=== PATIENT | female | born 1930 | race Caucasian/White ===

== ENCOUNTER 2016-07-24 19:47 | Emergency (ER) | payer OTHER, MEDICAID ==
[2016-07-24] MEDS ORDERED: ACETAMINOPHEN 325 MG TAB ONE (20:36)
[2016-07-24] MEDS ORDERED: NS 1,800 ML IV ONE (20:37)
--- NOTE | 2016-07-24 20:40 | EDPHY ---
H & P Stated Complaint: ST, Bilateral Earache, Coughing, chills. Time Seen by Provider: 07/24/16 20:29 HPI/ROS: CHIEF COMPLAINT: Sore throat and ear pain HISTORY OF PRESENT ILLNESS: The patient is an 86-year-old female who is brought by her daughter to the emergency department for sore throat, fever and bilateral ear pain as well as sinus congestion. Patient states that she has had bad allergies all winter but that over the last 3 days her symptoms have worsened. She does not have any history of cardiac pulmonary disease. She denies chest pain or shortness of breath. She denies abdominal pain, nausea, vomiting or diarrhea. She does have a history of irritable bowel but it is controlled. She denies urinary symptoms. No rashes or lesions. REVIEW OF SYSTEMS: Constitutional: denies: chills, fever, recent illness, recent injury EENTM: See HPI Respiratory: denies: cough, shortness of breath Cardiac: denies: chest pain, irregular heart rate, lightheadedness, palpitations Gastrointestinal/Abdominal: denies: abdominal pain, diarrhea, nausea, vomiting, blood streaked stools Genitourinary: denies: dysuria, frequency, hematuria, pain Musculoskeletal: denies: joint pain, muscle pain Skin: denies: lesions, rash, jaundice, bruising Neurological: denies: headache, numbness, paresthesia, tingling, dizziness, weakness Hematologic/Lymphatic: denies: blood clots, easy bleeding, easy bruising Immunologic/allergic: denies: HIV/AIDS, transplant EXAM: GENERAL: Well-appearing, well-nourished and in no acute distress. HEAD: Atraumatic, normocephalic. EYES: Pupils equal round and reactive to light, extraocular movements intact, sclera anicteric, conjunctiva are normal. ENT: TMs normal, nares patent, oropharynx clear without exudates. Moist mucous membranes. NECK: Normal range of motion, supple without lymphadenopathy or JVD. LUNGS: Breath sounds clear to auscultation bilaterally and equal. No wheezes rales or rhonchi. HEART: Regular rate and rhythm without murmurs, rubs or gallops. ABDOMEN: Soft, nontender, normoactive bowel sounds. No guarding, no rebound. No masses appreciated. BACK: No CVA tenderness, no spinal tenderness, step-offs or deformities EXTREMITIES: Normal range of motion, no pitting or edema. No clubbing or cyanosis. NEUROLOGICAL: Cranial nerves II through XII grossly intact. Normal speech, normal gait. 5/5 strength, normal movement in all extremities, normal sensation PSYCH: Normal mood, normal affect. SKIN: Warm, dry, normal turgor, no visible rashes or lesions. Source: Patient Exam Limitations: No limitations - Personal History Current Tetanus/Diphtheria Vaccine: Yes Current Tetanus Diphtheria and Acellular Pertussis (TDAP): Yes Tetanus Vaccine Date: 2012 - Medical/Surgical History Hx Asthma: No Hx Chronic Respiratory Disease: No Hx Diabetes: No Hx Cardiac Disease: Yes Hx Renal Disease: No Hx Cirrhosis: No Hx Alcoholism: No Hx HIV/AIDS: No Hx Splenectomy or Spleen Trauma: No Other PMH: Left lumpectomy, IBS, seasonal allergies, anxiety, OCD, heartburn, back pain, heart palpatations, a fib, hypothyroid. - Family History Significant Family History: No pertinent family hx - Social History Smoking Status: Former smoker Alcohol Use: Sober Drug Use: None Constitutional: Initial Vital Signs Temperature (C) 38.1 C 07/24/16 19:57 Heart Rate 109 H 07/24/16 19:57 Respiratory Rate 18 07/24/16 19:57 Blood Pressure 105/55 L 07/24/16 19:57 O2 Sat (%) 92 07/24/16 19:57 O2 Delivery Mode Room Air Allergies/Adverse Reactions: sulfamethoxazole [Sulfamethoxazole] Allergy (Unknown, Verified 07/24/16 20:03) Home Medications: Medication Instructions Recorded Atorvastatin Calcium 04/28/14 Hydrocodone/APAP 5/325 [Herman 1 tab PO Q6H PRN #15 tab 07/22/15 5/325 (*)] Ondansetron Odt [Zofran Odt 4 mg 4 mg PO Q4 PRN #20 tab 07/24/16 (RX)] Oseltamivir Phosphate [Tamiflu 75 75 mg PO BID #10 cap 07/24/16 mg (*)] Medical Decision Making ED Course/Re-evaluation: The patient's vital signs have normalized with fever control and fluids. She has flu B. She is well appearing. She and family eager to go home. I did offer admission but they decline. I gave him strict return precautions. Her symptoms began almost exactly 48 hours ago. I will start her on Tamiflu and Zofran. She and her family understand agree with this plan. Differential Diagnosis: Partial list of the Differential diagnosis considered include but were not limited to; influenza, otitis media, strep throat, sepsis and although unlikely based on the history and physical exam, I also considered meningitis, pneumonia. I discussed these differential diagnoses and the plan with the patient as well as the usual and expected course. The patient understands that the diagnosis is provisional and that in medicine we are not always correct and that further workup is often warranted. Usual and customary warnings were given. All of the patient's questions were answered. The patient was instructed to return to the emergency department should the symptoms at all worsen or return, otherwise to followup with the physician as we discussed. - Data Points Laboratory Results: Laboratory Results 07/24/16 21:00 07/24/16 21:00 07/24/16 Unknown Group A Strep DNA NEGATIVE (NEGATIVE) Medications Given: Discontinued Medications Sodium Chloride (Ns) 1,800 mls @ 3,600 mls/hr 30 ml/kg infuse over 30 min ( 1800 ml) IV EDNOW ONE Stop: 07/24/16 21:06 Last Admin: 07/24/16 20:30 Dose: 1,800 mls Ondansetron HCl (Zofran) 4 mg IVP EDNOW ONE Stop: 07/24/16 21:48 Last Admin: 07/24/16 21:49 Dose: 4 mg Oseltamivir Phosphate (Tamiflu) 75 mg PO EDNOW ONE Stop: 07/24/16 21:48 Last Admin: 07/24/16 22:00 Dose: 75 mg Departure - Departure Disposition: Home, Routine, Self-Care Clinical Impression: Influenza B Condition: Fair Instructions: Influenza (ED) Referrals: Nayana Lew MD [Primary Care Provider] - As per Instructions Prescriptions: Ondansetron Odt [Zofran Odt 4 mg (RX)] 4 mg PO Q4 PRN #20 tab PRN Reason: Nausea & Vomiting Oseltamivir Phosphate [Tamiflu 75 mg (*)] 75 mg PO BID #10 cap
[2016-07-24 21:10] LABS: % IMMATURE GRANULYOCYTES 0.4 % (0.0-1.1); ABSOLUTE IMMATURE GRANULOCYTES 0.02 10^3/uL (0.00-0.10); ADD DIFF? NO; ADD MORPH? NO; ADD SCAN? NO; ATYPICAL LYMPHOCYTE FLAG 0 (0-99); FRAGMENT RBC FLAG 0 (0-99); HEMATOCRIT 36.6 % (38.0-47.0); HEMOGLOBIN 12.2 g/dL (12.6-16.3); LEFT SHIFT FLG 0 (0-99); LIPEMIA HEMOLYSIS FLAG 80 (0-99); MEAN CELL HEMOGLOBIN 32.2 pg (27.9-34.1); MEAN CELL HEMOGLOBIN CONCENTR. 33.3 g/dL (32.4-36.7); MEAN CELL VOLUME 96.6 fL (81.5-99.8); MEAN PLATELET VOLUME 10.6 fL (8.7-11.7); PLATELET CLUMPS FLAG 10 (0-99); PLATELET COUNT 138 10^3/uL (150-400); RED BLOOD CELL COUNT 3.79 10^6/uL (4.18-5.33); RED CELL DISTRIBUTION WIDTH 13.8 % (11.5-15.2)
[2016-07-24 21:18] LABS: INR 1.1 (0.83-1.16); PROTIME(PATIENT) 13.9 SEC (12.0-15.0)
[2016-07-24 21:19] LABS: APTT 29.3 SEC (23.0-38.0)
[2016-07-24 21:26] LABS: ANION GAP 16 mEq/L (8-16); BILIRUBIN,TOTAL 0.3 mg/dL (0.1-1.4); CALCIUM 8.6 mg/dL (8.5-10.4); CARBON DIOXIDE 23 mEq/l (22-31); CHLORIDE 100 mEq/L (97-110); CREATININE 0.8 mg/dL (0.6-1.0); GLOMERULAR FILTRATION RATE > 60; GLUCOSE 119 mg/dL (70-100); SODIUM 139 mEq/L (134-144)
[2016-07-24 21:40] VITALS: BP 112/55; PULSE 91; RESP 16; TEMP 99.5; O2SAT 94
[2016-07-24] MEDS ORDERED: ONDANSETRON 4 MG/2 ML VIAL IVP ONE (21:47)
[2016-07-24] MEDS ORDERED: OSELTAMIVIR PHOSPHATE 75 MG CAP PO ONE (21:47)
[2016-07-24 22:03] LABS: COLOR YELLOW; LEUKOCYTE ESTERASE,URINE TRACE (NEGATIVE); NITRITE,URINE NEGATIVE (NEGATIVE)
[2016-07-24 22:12] LABS: RBC,URINE NONE SEEN /hpf (0-3)
[2016-07-24 22:13] LABS: BACTERIA TRACE /hpf (NONE SEEN); MUCUS 3+ /lpf (NONE-1+)
== END 2016-07-24 22:24 | disposition home or self-care (01) ==
LOC: CED 19:47
DX: J10.1 Influenza due to other identified influenza virus with other respiratory manifestations (principal); Z87.891 Personal history of nicotine dependence
CPT/HCPCS: 71020; 96361; 96374; 99284; J2405; 80048-PO; 81003-PO; 81015-PO; 82247-PO; 83605-PO; 85025-PO; 85610-PO; 85730-PO; 87400-PO; 87880-PO

== ENCOUNTER 2016-07-27 15:57 | Inpatient (IN) | payer OTHER, MEDICAID ==
[2016-07-27] MEDS ORDERED: NS 1,000 ML IV ONE (16:00)
[2016-07-27] MEDS ORDERED: IPRATROPIUM/ALBUTEROL 3 ML DEYVIAL IH ONE (16:00)
--- NOTE | 2016-07-27 16:00 | EDPHY ---
H & P HPI/ROS: HPI CHIEF COMPLAINT: Worsening cough, fever, generalized weakness HISTORY OF PRESENT ILLNESS: This patient is a 86-year-old female significant past medical history for IBS, OCD, anxiety, AFib him, presents emergency room her daughter by private vehicle for worsening generalized weakness, cough, fever. Also has confusion at home. She was recently seen here on Wednesday and diagnosed with influenza B and then subsequently went home. On Wednesday her daughter states that she was more confused when she went to [facility] emergency room where she was diagnosed with according to her daughter COPD exacerbation. She was then sent home from [facility]. Daughter brings her back here to the emergency room for worsening confusion, generalized weakness, fever worsening cough. Patient tells me she does feel globally weak, has had a cough, denies chest pain. Denies shortness of breath. Past Medical History: IBS, OCD, anxiety, AFib Past Surgical History: Lumpectomy Social History: Denies daily use drugs alcohol tobacco products lives locally, daughter at bedside. Daughter has health care [id number]. Family History: Noncontributory ROS REVIEW OF SYSTEMS: A comprehensive 10 point review of systems is otherwise negative aside from elements mentioned in the history of present illness. Exam Constitutional appears well nontoxic, triage nursing summary reviewed, vital signs reviewed, awake/alert. Eyes normal conjunctivae and sclera, EOMI, PERRLA. HENT normal inspection, atraumatic, moist mucus membranes, no epistaxis, neck supple/ no meningismus, no raccoon eyes. Respiratory upper airway secretions, decreased breath sounds bilaterally, wet sounding cough, Cardiovascular rate normal, regular rhythm, no murmur, no edema, distal pulses normal. Gastrointestinal soft, non-tender, no rebound, no guarding, normal bowel sounds, no distension, no pulsatile mass. Genitourinary no CVA tenderness. Musculoskeletal no midline vertebral tenderness, full range of motion, no calf swelling, no tenderness of extremities, no meningismus, good pulses, neurovascularly intact. Skin pink, warm, & dry, no rash, skin atraumatic. Neurologic awake, alert and oriented x 3, AAOx3, moves all 4 extremities equally, motor intact, sensory intact, CN II-XII intact, normal cerebellar, normal vision, normal speech. Psychiatric normal mood/affect. Heme/Lymph/Immune no lymphadenopathy. 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 Re-evaluation: EKG interpretation by me on record in [facility] system. Impression time of EKG is 1645, this is AFib rate of 64. 1700: I spoke with Dr. Tapia seen the hospitalist service who accepts this patient. Reason for admission is generalized weakness, right lower lobe pneumonia, influenza B positive. Here in the emergency room the patient received IV fluid bolus, no evidence of acute heart failure however elevated BNP, chest x-ray shows right lower lobe focal infiltrate, no to be influenza B positive from Wednesday. Blood cultures have been pulled. Lactic acid less than 2. IV Rocephin has been given and IV azithromycin as be given. 1702: Daughter updated. Source: Patient, Family - Personal History Tetanus Vaccine Date: 2012 - Medical/Surgical History Hx Asthma: No Hx Chronic Respiratory Disease: No Hx Diabetes: No Hx Cardiac Disease: Yes Hx Renal Disease: No Hx Cirrhosis: No Hx Alcoholism: No Hx HIV/AIDS: No Hx Splenectomy or Spleen Trauma: No Other PMH: Left lumpectomy, IBS, seasonal allergies, anxiety, OCD, heartburn, back pain, heart palpatations, a fib, hypothyroid. - Social History Smoking Status: Former smoker Constitutional: Initial Vital Signs Temperature (C) 37.4 C 07/27/16 15:57 Heart Rate 88 07/27/16 15:57 Respiratory Rate 16 07/27/16 15:57 Blood Pressure 104/54 L 07/27/16 15:57 O2 Sat (%) 94 07/27/16 15:57 O2 Delivery Mode Nasal Cannula O2 (L/minute) 2 Allergies/Adverse Reactions: sulfamethoxazole [Sulfamethoxazole] Allergy (Unknown, Verified 07/27/16 16:03) Home Medications: Medication Instructions Recorded Atorvastatin Calcium 04/28/14 Oseltamivir Phosphate [Tamiflu 75 75 mg PO BID #10 cap 07/24/16 mg (*)] Medical Decision Making - Diagnostics Imaging Results: Imaging Impressions Chest X-Ray 07/27/16 16:00 Impression: Suspect early right lower lobe pneumonia.. - Data Points Laboratory Results: Laboratory Results 07/27/16 16:00 07/27/16 16:00 07/27/16 07/27/16 07/27/16 16:00 16:00 16:00 WBC 5.56 10^3/uL 10^3/uL (3.80-9.50) RBC 3.68 10^6/uL L 10^6/uL (4.18-5.33) Hgb 11.8 g/dL L g/dL (12.6-16.3) Hct 34.6 % L % (38.0-47.0) MCV 94.0 fL fL (81.5-99.8) MCH 32.1 pg pg (27.9-34.1) MCHC 34.1 g/dL g/dL (32.4-36.7) RDW 13.2 % % (11.5-15.2) Plt Count 120 10^3/uL L 10^3/uL (150-400) MPV 10.1 fL fL (8.7-11.7) Neut % (Auto) 61.7 % % (39.3-74.2) Lymph % (Auto) 30.0 % % (15.0-45.0) [place] % (Auto) 7.9 % % (4.5-13.0) Eos % (Auto) 0.0 % L % (0.6-7.6) Baso % (Auto) 0.2 % L % (0.3-1.7) Nucleat RBC Rel Count 0.0 % % (0.0-0.2) Absolute Neuts (auto) 3.43 10^3/uL 10^3/uL (1.70-6.50) Absolute Lymphs (auto) 1.67 10^3/uL 10^3/uL (1.00-3.00) Absolute Monos (auto) 0.44 10^3/uL 10^3/uL (0.30-0.80) Absolute Eos (auto) 0.00 10^3/uL L 10^3/uL (0.03-0.40) Absolute Basos (auto) 0.01 10^3/uL L 10^3/uL (0.02-0.10) Absolute Nucleated RBC 0.00 10^3/uL 10^3/uL (0-0.01) Immature Gran % 0.2 % % (0.0-1.1) Immature Gran # 0.01 10^3/uL 10^3/uL (0.00-0.10) PT 13.1 SEC SEC (12.0-15.0) INR 1.02 (0.83-1.16) APTT 33.2 SEC SEC (23.0-38.0) VBG Lactic Acid Sodium 137 mEq/L mEq/L (134-144) Potassium 3.6 mEq/L mEq/L (3.5-5.2) Chloride 98 mEq/L mEq/L (97-110) Carbon Dioxide 27 mEq/l mEq/l (22-31) Anion Gap 12 mEq/L mEq/L (8-16) BUN 13 mg/dL mg/dL (7-23) Creatinine 0.6 mg/dL mg/dL (0.6-1.0) Estimated GFR > 60 Glucose 84 mg/dL mg/dL (70-100) Calcium 8.2 mg/dL L mg/dL (8.5-10.4) Troponin I 0.022 ng/mL ng/mL (0-0.034) NT-Pro-B Natriuret Pep 4650 pg/mL H pg/mL (0-450) 07/27/16 16:00 WBC RBC Hgb Hct MCV MCH MCHC RDW Plt Count MPV Neut % (Auto) Lymph % (Auto) [place] % (Auto) Eos % (Auto) Baso % (Auto) Nucleat RBC Rel Count Absolute Neuts (auto) Absolute Lymphs (auto) Absolute Monos (auto) Absolute Eos (auto) Absolute Basos (auto) Absolute Nucleated RBC Immature Gran % Immature Gran # PT INR APTT VBG Lactic Acid 0.6 mmol/L L D mmol/L (0.7-2.1) Sodium Potassium Chloride Carbon Dioxide Anion Gap BUN Creatinine Estimated GFR Glucose Calcium Troponin I NT-Pro-B Natriuret Pep Medications Given: Discontinued Medications Albuterol/Ipratropium (Duoneb) 3 ml IH EDNOW ONE Stop: 07/27/16 16:01 Last Admin: 07/27/16 16:27 Dose: 3 ml Sodium Chloride (Ns) 1,000 mls @ 0 mls/hr IV ONCE ONE PRN Reason: Wide Open Stop: 07/27/16 16:01 Last Admin: 07/27/16 16:20 Dose: 1,000 mls Departure - Departure Disposition: [facility] Acute Clinical Impression: Generalized weakness, Influenza B Pneumonia Qualifiers: Pneumonia type: due to unspecified organism Laterality: right Lung location: lower lobe of lung Qualified Code(s): J18.1 - Lobar pneumonia, unspecified organism Afib Qualifiers: Atrial fibrillation type: chronic Qualified Code(s): I48.2 - Chronic atrial fibrillation Condition: Fair Referrals: NONE *PRIMARY CARE P,. [Primary Care Provider] - As per Instructions
[2016-07-27 16:10] LABS: % IMMATURE GRANULYOCYTES 0.2 % (0.0-1.1); ABSOLUTE IMMATURE GRANULOCYTES 0.01 10^3/uL (0.00-0.10); ADD DIFF? NO; ADD MORPH? NO; ADD SCAN? YES; FRAGMENT RBC FLAG 0 (0-99); HEMATOCRIT 34.6 % (38.0-47.0); HEMOGLOBIN 11.8 g/dL (12.6-16.3); LEFT SHIFT FLG 40 (0-99); LIPEMIA HEMOLYSIS FLAG 90 (0-99); MEAN CELL HEMOGLOBIN 32.1 pg (27.9-34.1); MEAN CELL HEMOGLOBIN CONCENTR. 34.1 g/dL (32.4-36.7); MEAN PLATELET VOLUME 10.1 fL (8.7-11.7); PLATELET CLUMPS FLAG 0 (0-99); PLATELET COUNT 120 10^3/uL (150-400); RED BLOOD CELL COUNT 3.68 10^6/uL (4.18-5.33); RED CELL DISTRIBUTION WIDTH 13.2 % (11.5-15.2)
[2016-07-27 16:12] LABS: ATYPICAL LYMPHOCYTE FLAG 100 (0-99)
[2016-07-27 16:19] LABS: INR 1.02 (0.83-1.16); PROTIME(PATIENT) 13.1 SEC (12.0-15.0)
[2016-07-27 16:20] LABS: APTT 33.2 SEC (23.0-38.0)
[2016-07-27 16:28] LABS: ANION GAP 12 mEq/L (8-16); CALCIUM 8.2 mg/dL (8.5-10.4); CARBON DIOXIDE 27 mEq/l (22-31); CHLORIDE 98 mEq/L (97-110); CREATININE 0.6 mg/dL (0.6-1.0); GLOMERULAR FILTRATION RATE > 60; GLUCOSE 84 mg/dL (70-100); POTASSIUM 3.6 mEq/L (3.5-5.2); SODIUM 137 mEq/L (134-144)
[2016-07-27 16:30] LABS: SCAN NEGATIVE
[2016-07-27 16:35] LABS: TROPONIN I 0.022 ng/mL (0-0.034)
[2016-07-27] MEDS ORDERED: AZITHROMYCIN IV 500 MG in D5W 250 ML IV ONE (16:38)
--- NOTE | 2016-07-27 16:48 | CPEKG ---
Heart Rate: 89 RR Interval: 674 QRSD Interval: 84 QT Interval: 392 QTC Interval: 477 QRS [place]: 9 T Wave [place]: 32 EKG Severity - ABNORMAL ECG - EKG Impression: ATRIAL FIBRILLATION, V-RATE 64-106 EKG Impression: PROBABLE ANTEROSEPTAL INFARCT, AGE INDETERM Electronically Signed By: Amber Ray 28-Jul-2016 17:01:06
[2016-07-27] MEDS ORDERED: OSELTAMIVIR PHOSPHATE 75 MG CAP ONE (18:45)
[2016-07-27] MEDS ORDERED: OSELTAMIVIR PHOSPHATE 75 MG CAP PO SCH (18:45)
[2016-07-27] MEDS ORDERED: ONDANSETRON DISINTEGRATING 4 MG TAB PO PRN (18:57)
[2016-07-27] MEDS ORDERED: NS 500 ML IV ONE (18:57)
[2016-07-27] MEDS ORDERED: ONDANSETRON 4 MG/2 ML VIAL IVP PRN (18:57)
[2016-07-27] MEDS ORDERED: ACETAMINOPHEN 325 MG TAB PO PRN (18:57)
[2016-07-27] MEDS ORDERED: ALBUTEROL 3 ML DEYVIAL IH PRN (18:57)
[2016-07-27] MEDS ORDERED: NS 1,000 ML IV SCH (19:00)
[2016-07-27] MEDS: IPRATROPIUM/ALBUTEROL 3 ML DEYVIAL IH SCH (21:48)
[2016-07-27] MEDS: guaiFENesin 600 MG TAB.ER PO SCH (22:03)
[2016-07-27] MEDS ORDERED: MEMANTINE HCL PO SCH (22:30)
[2016-07-27] MEDS ORDERED: DIPHENOXYLATE/ATROPINE LOMOTIL 1 TAB PO PRN (22:38)
[2016-07-27] MEDS: predniSONE 20 MG TAB PO SCH (23:28)
--- NOTE | 2016-07-27 23:41 | GHP ---
[f rep st] HISTORY AND PHYSICAL DATE OF ADMISSION: 07/27/2016 CHIEF COMPLAINT: Shortness of breath. HISTORY OF PRESENT ILLNESS: This is an 86-year-old female with no significant past pulmonary histor y, who presents with complaints of shortness of breath, cough, fever, weakness and confusion. The alvaro santos originally sought care last week with complaints of shortness of breath and at that time was noted to have influenza B, was initiated on Tamiflu and sent home with inhaled medications. Per the family's report, she had minimal improvement in her symptoms. However, did have resolution of her fevers and mild improvement in her cough. They then noted over the course of the last 10 hours, the patient became more confused, redeveloped fever, had persisting cough and shortness of breath, and therefore presented to the urgent care clinic today for evaluation. On the medical floor, the patie nt is denying any headache or vision changes. Denies abdominal pain, nausea, or vomiting. Reports shortness of breath that has been improved since receiving care in the urgent care. Denies pleuriti c chest pain. Denies chest pain. Reports persistent cough with now sore throat. The cough is prod uctive of discolored sputum. Also having abdominal muscular pain with her cough. Denies any lower extremity edema. Denies any rashes. Denies dysuria. The patient has irritable bowel syndrome and often has either constipation or loose stools. This has been unchanged recently. Her oral intake h as been decreased but she has been taking her medications compliantly. Daughter reports the patient was markedly confused the morning of presentation. Had several near falls, even from a seated posi tion on the couch prior to presentation which is uncharacteristic for her. PAST MEDICAL HISTORY: 1. Irritable bowel. 2. Hypothyroidism. 3. GERD. 4. Anxiety. 5. OCD. 6. Atrial fibrillation. SOCIAL HISTORY: The patient has a very remote smoking history, quit over 40 years ago[address] Does not dr ink alcohol. Does not use marijuana or illicit drugs. FAMILY HISTORY: Negative for underlying lung disease. ADVANCED DIRECTIVES: The patient is do not resuscitate. Her daughter would be her medical decision -maker. REVIEW OF SYSTEMS: A 10-point Review of Systems is negative with the exception of that reported in the HPI. PHYSICAL EXAMINATION: VITAL SIGNS: Blood pressure 90/51, heart rate 76, respiratory rate 24, satur ating 92% on 2 L, 37.0. GENERAL: This is an elderly female, who appears comfortable. HEENT: Notab le for dry mucous membranes. Eyes: Negative for any icterus. CARDIAC: Patient is regular rate an d rhythm. PULMONARY: She is diffusely wheezy with prolonged expiration both anteriorly and posteri damaris. No rhonchi or rales are appreciated. GASTROINTESTINAL: Positive bowel sounds. Abdomen is so ft and nontender. MUSCULOSKELETAL: Negative for any lower extremity edema. SKIN: Negative for an y rashes. NEUROLOGIC: She is alert and oriented x3. PSYCHIATRIC: She is cooperative on interview and examination. DATA: White count is 5.5, hematocrit 34.6, platelets of 120. Creatinine 0.6. Patient with influen za B on 07/24/2016. Chest x-ray, which I personally reviewed and interpreted, shows a new early rig ht lower lobe pneumonia not visualized on 07/24 imaging. ASSESSMENT AND PLAN: This is an 86-year-old female, presenting with shortness of breath and confusi on. 1. Acute hypoxic respiratory failure. Suspect the patient may have a secondary bacterial pneumonia after recent influenza B diagnosis based on imaging and recurrence of fever which had previously re solved, who obtained blood cultures from the urgent care clinic and initiated ceftriaxone, azithromy quin. Have ordered sputum cultures in an attempt to obtain more microbiologic data. Will complete h er course of Tamiflu and as above initiate antibiotics. The patient is additionally wheezy on exami nation. Will treat with inhaled beta agonists and DuoNeb. 2. Community-acquired pneumonia, suspect bacterial in nature. Will initiate antibiotics as above w violetatania completing the full course of Tamiflu. 3. Hypothyroidism. Will continue her supplementation at her home dosing. 4. Anxiety. Will continue her outpatient antidepressant. 5. Prophylaxis with Lovenox. 6. Diet, regular. DISPOSITION: I expect greater than 2 midnights as patient is elderly requiring oxygen and appears w eak on examination. Suspect she will need more than 1 night for supportive care and treatment of he r underlying lung process. Discussed the case with the urgent care physician. Patient will be tria ged to the medical-surgical floor for care. /[id number]/MODL
[2016-07-28 04:39] LABS: % IMMATURE GRANULYOCYTES 0.4 % (0.0-1.1); ABSOLUTE IMMATURE GRANULOCYTES 0.02 10^3/uL (0.00-0.10); ADD DIFF? NO; ADD MORPH? NO; ADD SCAN? NO; ATYPICAL LYMPHOCYTE FLAG 0 (0-99); FRAGMENT RBC FLAG 0 (0-99); HEMATOCRIT 32.5 % (38.0-47.0); HEMOGLOBIN 10.8 g/dL (12.6-16.3); LEFT SHIFT FLG 60 (0-99); LIPEMIA HEMOLYSIS FLAG 80 (0-99); MEAN CELL HEMOGLOBIN CONCENTR. 33.2 g/dL (32.4-36.7); MEAN CELL VOLUME 96.4 fL (81.5-99.8); MEAN PLATELET VOLUME 10.6 fL (8.7-11.7); PLATELET CLUMPS FLAG 10 (0-99); PLATELET COUNT 105 10^3/uL (150-400); RED BLOOD CELL COUNT 3.37 10^6/uL (4.18-5.33); RED CELL DISTRIBUTION WIDTH 13.3 % (11.5-15.2)
[2016-07-28] MEDS: IPRATROPIUM/ALBUTEROL 3 ML DEYVIAL IH SCH ×4 (05:20→21:24)
[2016-07-28 05:40] LABS: ANION GAP 6 mEq/L (8-16); CALCIUM 8.3 mg/dL (8.5-10.4); CARBON DIOXIDE 30 mEq/l (22-31); CHLORIDE 105 mEq/L (97-110); CREATININE 0.5 mg/dL (0.6-1.0); GLOMERULAR FILTRATION RATE > 60; GLUCOSE 85 mg/dL (70-100); POTASSIUM 3.7 mEq/L (3.5-5.2); SODIUM 141 mEq/L (134-144)
[2016-07-28] MEDS: predniSONE 20 MG TAB PO SCH (09:20)
[2016-07-28] MEDS: AZITHROMYCIN IV 500 MG in D5W 250 ML IV SCH (09:20)
[2016-07-28] MEDS: OSELTAMIVIR PHOSPHATE 75 MG CAP PO SCH ×2 (09:20→21:00)
[2016-07-28] MEDS: ESCITALOPRAM OXALATE 10 MG TAB PO SCH (09:20)
[2016-07-28] MEDS: ENOXAPARIN 40 MG/0.4 ML SYR SC SCH (09:20)
[2016-07-28] MEDS: guaiFENesin 600 MG TAB.ER PO SCH ×2 (09:21→20:59)
[2016-07-28] MEDS: PANTOPRAZOLE SODIUM 40 MG TAB PO SCH (09:21)
[2016-07-28] MEDS: LORazepam 1 MG TAB PO SCH ×2 (09:21→21:00)
[2016-07-28] MEDS: DICYCLOMINE 20 MG TAB PO SCH ×2 (09:21→20:59)
[2016-07-28] MEDS: CARVEDILOL 6.25 MG TAB PO SCH ×2 (09:21→17:37)
[2016-07-28] MEDS ORDERED: MEMANTINE HCL PO SCH (11:45)
--- NOTE | 2016-07-28 14:53 | HOSPPROG ---
Hospitalist Progress Note Assessment/Plan: 86-year-old admitted with cough fever shortness of breath. She recently was diagnosed with influenza has been taking Tamiflu. # Community-acquired pneumonia in an elderly woman associated with acute hypoxic respiratory failure. * Continue ceftriaxone and Zithromax * follow her clinically with labs and vitals * complete course of Tamiflu # anxiety continue her usual medication # hypothyroidism continue her Synthroid # DVT prophylaxis Subjective: patient new to me and chart reviewed. Still quite short of breath. 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 Objective: Vital Signs Temp Pulse Resp BP Pulse Ox 36.9 C 93 18 108/71 95 07/28/16 11:58 07/28/16 11:58 07/28/16 11:58 07/28/16 11:58 07/28/16 11:58 Microbiology 07/28/16 01:10 - Final Sputum, Expectorated Laboratory Results 07/28/16 04:16 07/28/16 04:16 07/27/16 07/28/16 07/29/16 05:59 05:59 05:59 Intake Total 700 Balance 700 PT 13.1 SEC (12.0-15.0) 07/27/16 16:00 INR 1.02 (0.83-1.16) 07/27/16 16:00 - Time Spent With Patient Time Spent with Patient: greater than 25 minutes Time Spent with Patient: Greater than 25 minutes spent on this patients care, greater than 50% of time spent counseling, educating, and coordinating care regarding the above mentioned plan. - Physical Exam Constitutional: chronically ill appearing, uncomfortable Eyes: PERRL, EOMI Ears, Nose, Mouth, Throat: moist mucous membranes Cardiovascular: regular rate and rhythym, systolic murmur ( If gallop), No edema Respiratory: expiratory wheeze, bronchial breath sounds, respiratory distress Gastrointestinal: normoactive bowel sounds, soft, non-tender abdomen, No tenderness Genitourinary: no bladder fullness Skin: warm Musculoskeletal: generalized weakness Neurologic: No facial droop Psychiatric: interacting appropriately Lymph, Heme, Immunologic: no cervical LAD ICD10 Worksheet Patient Problems: Problems Problem Status Onset Atrial fibrillation Acute Generalized weakness Acute Pneumonia Acute Afib Acute Influenza B Acute
[2016-07-28] MEDS ORDERED: ASPIRIN EC 81 MG TAB PO SCH (17:00)
[2016-07-28] MEDS ORDERED: LEVOTHYROXINE 75 MCG TAB PO SCH (17:00)
[2016-07-28] MEDS ORDERED: MONTELUKAST SODIUM 10 MG TAB PO SCH (21:00)
[2016-07-28 22:46] VITALS: TEMP 98.7
[2016-07-29] MEDS ORDERED: traZODone 50 MG TAB PO PRN (02:40)
[2016-07-29] MEDS: IPRATROPIUM/ALBUTEROL 3 ML DEYVIAL IH SCH ×2 (05:26→10:27)
[2016-07-29] MEDS: CARVEDILOL 6.25 MG TAB PO SCH (09:11)
[2016-07-29] MEDS: ESCITALOPRAM OXALATE 10 MG TAB PO SCH (09:11)
[2016-07-29] MEDS: DICYCLOMINE 20 MG TAB PO SCH (09:11)
[2016-07-29] MEDS: LORazepam 1 MG TAB PO SCH (09:11)
[2016-07-29] MEDS: OSELTAMIVIR PHOSPHATE 75 MG CAP PO SCH (09:12)
[2016-07-29] MEDS: PANTOPRAZOLE SODIUM 40 MG TAB PO SCH (09:12)
[2016-07-29] MEDS: guaiFENesin 600 MG TAB.ER PO SCH (09:12)
[2016-07-29] MEDS: ENOXAPARIN 40 MG/0.4 ML SYR SC SCH (09:12)
[2016-07-29] MEDS: predniSONE 20 MG TAB PO SCH (09:19)
[2016-07-29 09:24] VITALS: BP 151/84
--- NOTE | 2016-07-29 09:41 | PDIAF ---
- Diagnosis Diagnosis: influenza B Code Status: Full Code - Medication Management Discharge Medications: Medications to Continue on Transfer Aspirin EC [Aspirin EC 81 mg (*)] 81 mg PO DAILY@1700 07/27/16 [Last Taken 07/26] Carvedilol [Coreg] 12.5 mg PO BIDMEAL 07/27/16 [Last Taken 07/27/16 09:00 1 dose ] Dicyclomine [Bentyl 20 MG (*)] 20 mg PO BID 07/27/16 [Last Taken 07/27/16 09:00 1 dose] Escitalopram Oxalate [Lexapro] 20 mg PO DAILY 07/27/16 [Last Taken 07/27/16] LORazepam [Ativan (*)] 1 mg PO BID 07/27/16 [Last Taken 07/27/16 09:00 1 tab] Levothyroxine [Synthroid 75 mcg (*)] 75 mcg PO DAILY@1700 07/27/16 [Last Taken 07/26/16] Memantine HCl 1 each PO AD 07/27/16 [Last Taken 07/27/16 09:00 1 tab] Montelukast Sodium [Singulair 10 mg (*)] 10 mg PO HS 07/27/16 [Last Taken ] Omeprazole [Prilosec 20 mg] 20 mg PO DAILY 07/27/16 [Last Taken 07/27/16] rOPINIRole HCL [Ropinirole HCl] 2 mg PO HS PRN 07/27/16 [Last Taken 07/26/16] levOFLOXACIN [Levofloxacin] 750 mg PO DAILY #4 tablet 07/29/16 [Last Taken Unknown] predniSONE 40 mg PO DAILY #4 tablet 07/29/16 [Last Taken Unknown] Discharge Medications: Refer to the Discharge Home Medication list for PRN reason. - Orders Services needed: Home Care, Registered Nurse, Physical Therapy Home Care Face to Face: I certify that this patient was under my care and that I had the required [id number] encounter meeting the encounter requirements on the discharge day. My findings support the fact that the patient is homebound as defined in CMS Chapter 7 Medicare Benefits Manual 30.1.1, The condition of the patient is such that there exists a normal inability to leave home and consequently, leaving home would require a considerable and taxing effort. Diet Recommendation: cardiac -low fat low salt Diet Texture: Regular Texture Diet - Follow Up Care Current Providers and Referrals: NONE *PRIMARY CARE P,. [Unknown] - As per Instructions Jordi Browne MD [Medical Doctor] -
[2016-07-29] MEDS: AZITHROMYCIN IV 500 MG in D5W 250 ML IV SCH (10:01)
[2016-07-29 11:53] VITALS: PULSE 72; RESP 16; O2SAT 92
--- NOTE | 2016-07-29 18:41 | GDS ---
[f rep st] DISCHARGE SUMMARY DISCHARGE DIAGNOSES: Include: 1. Acute hypoxic respiratory failure secondary to reactive airways and pneumonia. 2. Acute influenza B. 3. Community-acquired pneumonia, presumed secondary to influenza B, plus possible secondary bacteri al pneumonia. 4. Anxiety. 5. Hypothyroidism. HISTORY OF PRESENT ILLNESS: This is an 86-year-old female, who had a prolonged outpatient course fo r respiratory symptoms, admitted ultimately with hypoxia and pneumonia. For details of the patient' s initial presentation, please see the history and physical dated 07/27/2016. CONSULTATIVE SERVICES: None. PROCEDURES: On 07/27/2016, patient had a PA and lateral chest x-ray that showed a new right-sided i nfiltrate. HOSPITAL COURSE BY ISSUE: 1. Acute hypoxic respiratory failure. Patient presented extremely wheezy with a known diagnosis of influenza B and a new infiltrate on chest x-ray with a fever 5 days into her viral course. The pat ient was presumptively treated for bacterial pneumonia, and treated for reactive airways. The patie nt is being discharged off oxygen. 2. Influenza B. Patient completed her course of Tamiflu. 3. Community-acquired pneumonia secondary to influenza B and suspected secondary bacterial pneumoni a. Patient was treated with IV azithromycin, ceftriaxone, and transitioned to p.o. levofloxacin for 4 days post disposition. 4. Reactive airways. The patient does not carry a preceding diagnosis of asthma, but has had a com plicated course of recurrent pulmonary infections. We are we are recommending she seek outpatient p ulmonary consultation after the resolution of this acute event. MEDICATIONS AT THE TIME OF DISPOSITION: Please reference medication reconciliation printed on 07/29. FOLLOWUP APPOINTMENTS: Include with her primary care provider in the next 7-10 days, as well as out patient pulmonary in the next month. PENDING STUDIES: At the time of this dictation, include blood cultures, which were drawn on 017, which are preliminary, no growth to date at the time of disposition. I spent greater than 30 minutes in the planning and coordination of this discharge. /[id number]/MODL
== END 2016-07-29 12:11 | disposition home health service (06) | DRG 193 ==
LOC: CED 15:57 → CEDHOLD 16:58 → F3E 20:36
PROVIDERS: ADMIT Hospitalist; ATTEND Hospitalist
DX: J10.01 Influenza due to other identified influenza virus with the same other identified influenza virus pneumonia (principal); J96.01 Acute respiratory failure with hypoxia; J10.08 Influenza due to other identified influenza virus with other specified pneumonia; J15.9 Unspecified bacterial pneumonia; J45.909 Unspecified asthma, uncomplicated; F41.9 Anxiety disorder, unspecified; E03.9 Hypothyroidism, unspecified; K21.9 Gastro-esophageal reflux disease without esophagitis; I48.91 Unspecified atrial fibrillation
CPT/HCPCS: 71020-PO; 80048-PO; 81003-PO; 81015-PO; 82247-PO; 83605-PO; 83880-PO; 84484-PO; 85025-PO; 85610-PO; 85730-PO; 87400-PO; 87880-PO; 96365; 96374; 97161-GP; 97165-GO; G8978-GP-CJ; G8979-GP-CI; G8987-GO-CI; G8988-GO-CI; J0456; J0696; J1650; J2405

== ENCOUNTER 2016-08-05 10:28 | Emergency (ER) | payer OTHER, MEDICAID ==
--- NOTE | 2016-08-05 10:45 | EDPHY ---
H & P Stated Complaint: fell and hit head on plastic magazine case @ PCP- denies LOC Time Seen by Provider: 08/05/16 10:38 HPI/ROS: CHIEF COMPLAINT: Fall HISTORY OF PRESENT ILLNESS: Patient is an 86-year-old female who comes to the emergency department after a fall at her doctor's office. She has a history of frequent falls and poor balance. She lives at home with family. She typically uses a walker. She was at a follow-up exam this morning and while preparing to leave she lost her balance and fell. She may have hit her head but was not sure. She did not lose consciousness. She denies syncope or chest pain or shortness of breath. She does not have any abrasions or hematomas. No headache. No nausea vomiting. No seizures. No confusion. No neck pain. REVIEW OF SYSTEMS: Constitutional: denies: chills, fever, recent illness, recent injury EENTM: denies: blurred vision, double vision, nose congestion Respiratory: denies: cough, shortness of breath Cardiac: denies: chest pain, irregular heart rate, lightheadedness, palpitations Gastrointestinal/Abdominal: denies: abdominal pain, diarrhea, nausea, vomiting, blood streaked stools Genitourinary: denies: dysuria, frequency, hematuria, pain Musculoskeletal: denies: joint pain, muscle pain Skin: denies: lesions, rash, jaundice, bruising Neurological: denies: headache, numbness, paresthesia, tingling, dizziness, weakness Hematologic/Lymphatic: denies: blood clots, easy bleeding, easy bruising Immunologic/allergic: denies: HIV/AIDS, transplant EXAM: GENERAL: Well-appearing, well-nourished and in no acute distress. HEAD: Atraumatic, normocephalic. EYES: Pupils equal round and reactive to light, extraocular movements intact, sclera anicteric, conjunctiva are normal. ENT: TMs normal, nares patent, oropharynx clear without exudates. Moist mucous membranes. NECK: Normal range of motion, supple without lymphadenopathy or JVD. LUNGS: Breath sounds clear to auscultation bilaterally and equal. No wheezes rales or rhonchi. HEART: Regular rate and rhythm without murmurs, rubs or gallops. ABDOMEN: Soft, nontender, normoactive bowel sounds. No guarding, no rebound. No masses appreciated. BACK: No CVA tenderness, no spinal tenderness, step-offs or deformities EXTREMITIES: Normal range of motion, no pitting or edema. No clubbing or cyanosis. NEUROLOGICAL: Cranial nerves II through XII grossly intact. Normal speech, normal gait. 5/5 strength, normal movement in all extremities, normal sensation PSYCH: Normal mood, normal affect. SKIN: Warm, dry, normal turgor, no visible rashes or lesions. Source: Patient Exam Limitations: No limitations - Personal History Tetanus Vaccine Date: 2012 - Medical/Surgical History Hx Asthma: No Hx Chronic Respiratory Disease: No Hx Diabetes: No Hx Cardiac Disease: Yes Hx Renal Disease: No Hx Cirrhosis: No Hx Alcoholism: No Hx HIV/AIDS: No Hx Splenectomy or Spleen Trauma: No Other PMH: Left lumpectomy, IBS, seasonal allergies, anxiety, OCD, heartburn, back pain, heart palpatations, a fib, hypothyroid. - Family History Significant Family History: No pertinent family hx - Social History Smoking Status: Former smoker Alcohol Use: Sober Drug Use: None Constitutional: Initial Vital Signs Temperature (C) 36.6 C 08/05/16 10:40 Heart Rate 70 08/05/16 10:40 Respiratory Rate 18 08/05/16 10:40 Blood Pressure 96/57 L 08/05/16 10:40 O2 Sat (%) 92 08/05/16 10:40 O2 Delivery Mode Room Air Allergies/Adverse Reactions: sulfamethoxazole [Sulfamethoxazole] Allergy (Unknown, Verified 07/27/16 16:03) Home Medications: Medication Instructions Recorded Aspirin EC [Aspirin EC 81 mg (*)] 81 mg PO DAILY@17007/27/16 Carvedilol [Coreg] 12.5 mg PO BIDMEAL 07/27/16 Dicyclomine [Bentyl 20 MG (*)] 20 mg PO BID 07/27/16 Escitalopram Oxalate [Lexapro] 20 mg PO DAILY 07/27/16 LORazepam [Ativan (*)] 1 mg PO BID 07/27/16 Levothyroxine [Synthroid 75 mcg 75 mcg PO DAILY@1700 07/27/16 (*)] Memantine HCl 1 each PO AD 07/27/16 Montelukast Sodium [Singulair 10 10 mg PO HS 07/27/16 mg (*)] Omeprazole [Prilosec 20 mg] 20 mg PO DAILY 07/27/16 rOPINIRole HCL [Ropinirole HCl] 2 mg PO HS PRN 07/27/16 predniSONE 40 mg PO DAILY #4 tablet 07/29/16 Diphenoxylate HCl/Atrop Sulf 08/05/16 [Lomotil Tab (*)] Singulair 08/05/16 Ventolin Hfa Inhaler 08/05/16 Medical Decision Making ED Course/Re-evaluation: The patient is completely normal appearing. No evidence of head injury. No headache or symptoms. I did offer appeared of observation or CT scanning but patient and family decline in do not think it is necessary. I agree that a significant injury is extremely low likelihood considering her symptoms. They are eager to go home and will be discharged at this time and family will observe her there. Blood pressure triage appears slightly low however it is normal in the room. Differential Diagnosis: Partial list of the Differential diagnosis considered include but were not limited to; contusion, abrasion and although unlikely based on the history and physical exam, I also considered intracranial hemorrhage, fracture, neck injury . I discussed these differential diagnoses and the plan with the patient as well as the usual and expected course. The patient understands that the diagnosis is provisional and that in medicine we are not always correct and that further workup is often warranted. Usual and customary warnings were given. All of the patient's questions were answered. The patient was instructed to return to the emergency department should the symptoms at all worsen or return, otherwise to followup with the physician as we discussed. Departure - Departure Disposition: Home, Routine, Self-Care Clinical Impression: Fall Qualifiers: Encounter type: initial encounter Qualified Code(s): W19.XXXA - Unspecified fall, initial encounter Condition: Fair Instructions: Fall Prevention for Older Adults (ED) Referrals: Nayana Lew MD [Primary Care Provider] - As per Instructions
[2016-08-05 10:46] VITALS: RESP 18; TEMP 98
[2016-08-05 12:11] VITALS: BP 108/58; PULSE 63; O2SAT 94
== END 2016-08-05 11:00 | disposition home or self-care (01) ==
LOC: CED 10:28
DX: Z04.3 Encounter for examination and observation following other accident (principal); Z79.82 Long term (current) use of aspirin; Z87.891 Personal history of nicotine dependence; W19.XXXA Unspecified fall, initial encounter

== ENCOUNTER 2016-08-14 18:08 | Emergency (ER) | payer OTHER, MEDICAID ==
[2016-08-14 18:20] VITALS: TEMP 99.3; O2SAT 94
--- NOTE | 2016-08-14 18:48 | EDPHY ---
H & P Time Seen by Provider: 08/14/16 18:36 HPI/ROS: CHIEF COMPLAINT: Leg pain and swelling HISTORY OF PRESENT ILLNESS: Patient is an 86-year-old female who presents to the emergency department with left knee pain radiating to her left lower leg and ankle. Patient states that she was in the hospital on 07/27/2016 and diagnosed with pneumonia. While she was covering she tripped and fell. This was roughly 2 weeks ago. She struck her left knee. Since that time she has had mild left knee discomfort. Over the past few days she has had mild radiation of pain down into her left leg and ankle. She feels as though both lower extremities feel mildly numb. She has had mild increased ankle swelling. No chest pain or shortness of breath. No fevers or chills. REVIEW OF SYSTEMS: My complete review of systems is negative except as mentioned in the HPI. Past Medical/Surgical History: Includes irritable bowel syndrome, hypothyroidism, GERD, anxiety, OCD, atrial fibrillation (not anticoagulated), pneumonia Social history: The patient has a remote smoking history. She does not drink alcohol use marijuana. 0 5 Family history: No underlying lung disease Smoking Status: Former smoker Physical Exam: Vitals noted GENERAL: No acute distress, alert. HEENT: Eyes normal to inspection, normal pharynx, no signs of dehydration. NECK: No thyromegaly, no lymphadenopathy, supple. RESPIRATORY: Clear to auscultation bilaterally, no rales, rhonchi or wheezing. CVS: Irregularly regular, no rubs, murmurs, or gallops. ABDOMEN: Soft, nontender, nondistended, no organomegaly. BACK: Normal to inspection, no CVA tenderness. SKIN: Normal color, no rash, warm, dry. No pallor. EXTREMITIES: Bilateral +1 pedal edema, no calf tenderness, no Homans sign or cords, no joint swelling. NEURO/PSYCH: Alert and oriented x3, normal mood and affect, normal motor sensory exam. Constitutional: Initial Vital Signs Temperature (C) 37.4 C 08/14/16 18:17 Heart Rate 98 08/14/16 18:17 Respiratory Rate 16 08/14/16 18:17 Blood Pressure 131/67 H 08/14/16 18:17 O2 Sat (%) 94 08/14/16 18:17 O2 Delivery Mode Room Air Allergies/Adverse Reactions: sulfamethoxazole [Sulfamethoxazole] Allergy (Unknown, Verified 08/14/16 18:20) Home Medications: Medication Instructions Recorded Aspirin EC [Aspirin EC 81 mg (*)] 81 mg PO DAILY@1700 07/27/16 Carvedilol [Coreg] 12.5 mg PO BIDMEAL 07/27/16 Dicyclomine [Bentyl 20 MG (*)] 20 mg PO BID 07/27/16 Escitalopram Oxalate [Lexapro] 20 mg PO DAILY 07/27/16 LORazepam [Ativan (*)] 1 mg PO BID 07/27/16 Levothyroxine [Synthroid 75 mcg 75 mcg PO DAILY@1700 07/27/16 (*)] Memantine HCl 1 each PO AD 07/27/16 Montelukast Sodium [Singulair 10 10 mg PO HS 07/27/16 mg (*)] Omeprazole [Prilosec 20 mg] 20 mg PO DAILY 07/27/16 rOPINIRole HCL [Ropinirole HCl] 2 mg PO HS PRN 07/27/16 predniSONE 40 mg PO DAILY #4 tablet 07/29/16 Diphenoxylate HCl/Atrop Sulf 08/05/16 [Lomotil Tab (*)] Singulair 08/05/16 Ventolin Hfa Inhaler 08/05/16 Medical Decision Making - Diagnostics EKG Interpretation: Atrial fibrillation at 85. Normal axis. Normal intervals. Q-wave in III, V1. Patient's previous EKG also showed atrial fibrillation. Imaging Results: Imaging Impressions Chest X-Ray 08/14/16 18:42 Impression: No acute findings in the chest. Extremity Venous Study 08/14/16 18:42 Impression: No evidence of deep vein thrombosis. Findings discussed with CARMINA MARTIN 08/14/2016 at 19:31. ED Course/Re-evaluation: In the emergency department I discussed possible etiologies with the patient and her daughter. I answered all her questions. IV was placed. Laboratory studies, EKG, chest x-ray, knee x-ray and ultrasound were ordered. I reviewed the patient's laboratory studies. Her white count is normal. Her med crit is low at 33. I compared this to the previous values. It is similar range. Patient has a BNP that is elevated in the 900s. Previous BNP was in the 4000s. Ultrasound showed no DVT. Differential Diagnosis: My differential includes but is not limited to CHF, DVT, atrial fibrillation, knee fracture, knee contusion, electrolyte abnormality, sugar abnormality, dehydration - Data Points Laboratory Results: Laboratory Results 08/14/16 18:50 08/14/16 18:50 08/14/16 08/14/16 08/14/16 18:50 18:50 18:50 WBC 4.49 10^3/uL 10^3/uL (3.80-9.50) RBC 3.40 10^6/uL L 10^6/uL (4.18-5.33) Hgb 11.2 g/dL L g/dL (12.6-16.3) Hct 33.3 % L % (38.0-47.0) MCV 97.9 fL fL (81.5-99.8) MCH 32.9 pg pg (27.9-34.1) MCHC 33.6 g/dL g/dL (32.4-36.7) RDW 14.6 % % (11.5-15.2) Plt Count 212 10^3/uL 10^3/uL (150-400) MPV 9.8 fL fL (8.7-11.7) Neut % (Auto) 42.3 % % (39.3-74.2) Lymph % (Auto) 42.1 % % (15.0-45.0) Irwin % (Auto) 13.1 % H % (4.5-13.0) Eos % (Auto) 1.6 % % (0.6-7.6) Baso % (Auto) 0.7 % % (0.3-1.7) Nucleat RBC Rel Count 0.0 % % (0.0-0.2) Absolute Neuts (auto) 1.90 10^3/uL 10^3/uL (1.70-6.50) Absolute Lymphs (auto) 1.89 10^3/uL 10^3/uL (1.00-3.00) Absolute Monos (auto) 0.59 10^3/uL 10^3/uL (0.30-0.80) Absolute Eos (auto) 0.07 10^3/uL 10^3/uL (0.03-0.40) Absolute Basos (auto) 0.03 10^3/uL 10^3/uL (0.02-0.10) Absolute Nucleated RBC 0.00 10^3/uL 10^3/uL (0-0.01) Immature Gran % 0.2 % % (0.0-1.1) Immature Gran # 0.01 10^3/uL 10^3/uL (0.00-0.10) PT 12.7 SEC SEC (12.0-15.0) INR 0.98 (0.83-1.16) APTT 26.4 SEC SEC (23.0-38.0) Sodium 142 mEq/L mEq/L (134-144) Potassium 4.2 mEq/L mEq/L (3.5-5.2) Chloride 103 mEq/L mEq/L (97-110) Carbon Dioxide 29 mEq/l mEq/l (22-31) Anion Gap 10 mEq/L mEq/L (8-16) BUN 15 mg/dL mg/dL (7-23) Creatinine 0.5 mg/dL L mg/dL (0.6-1.0) Estimated GFR > 60 Glucose 101 mg/dL H mg/dL (70-100) Calcium 8.7 mg/dL mg/dL (8.5-10.4) Troponin I < 0.012 ng/mL ng/mL (0-0.034) NT-Pro-B Natriuret Pep 984 pg/mL H pg/mL (0-450) Departure - Departure Disposition: Home, Routine, Self-Care Clinical Impression: Knee pain, acute Qualifiers: Laterality: left Qualified Code(s): M25.562 - Pain in left knee Edema Qualifiers: Edema type: unspecified Qualified Code(s): R60.9 - Edema, unspecified Condition: Good Referrals: Nayana Lew MD [Primary Care Provider] - 2-3 days, call for appt.
--- NOTE | 2016-08-14 18:54 | CPEKG ---
Heart Rate: 85 RR Interval: 706 QRSD Interval: 82 QT Interval: 372 QTC Interval: 443 QRS [place]: 16 T Wave [place]: 12 EKG Severity - ABNORMAL ECG - EKG Impression: ATRIAL FIBRILLATION, V-RATE 81-90 EKG Impression: ANTERIOR INFARCT, OLD Electronically Signed By: Adriano Daley 17-Aug-2016 11:23:59
[2016-08-14 18:58] LABS: % IMMATURE GRANULYOCYTES 0.2 % (0.0-1.1); ABSOLUTE IMMATURE GRANULOCYTES 0.01 10^3/uL (0.00-0.10); ADD DIFF? NO; ADD MORPH? NO; ADD SCAN? NO; ATYPICAL LYMPHOCYTE FLAG 40 (0-99); FRAGMENT RBC FLAG 0 (0-99); HEMATOCRIT 33.3 % (38.0-47.0); HEMOGLOBIN 11.2 g/dL (12.6-16.3); LEFT SHIFT FLG 0 (0-99); LIPEMIA HEMOLYSIS FLAG 80 (0-99); MEAN CELL HEMOGLOBIN 32.9 pg (27.9-34.1); MEAN CELL HEMOGLOBIN CONCENTR. 33.6 g/dL (32.4-36.7); MEAN CELL VOLUME 97.9 fL (81.5-99.8); MEAN PLATELET VOLUME 9.8 fL (8.7-11.7); PLATELET CLUMPS FLAG 0 (0-99); PLATELET COUNT 212 10^3/uL (150-400); RED CELL DISTRIBUTION WIDTH 14.6 % (11.5-15.2)
[2016-08-14 19:11] LABS: INR 0.98 (0.83-1.16); PROTIME(PATIENT) 12.7 SEC (12.0-15.0)
[2016-08-14 19:12] LABS: APTT 26.4 SEC (23.0-38.0)
[2016-08-14 19:14] LABS: ANION GAP 10 mEq/L (8-16); CALCIUM 8.7 mg/dL (8.5-10.4); CARBON DIOXIDE 29 mEq/l (22-31); CHLORIDE 103 mEq/L (97-110); CREATININE 0.5 mg/dL (0.6-1.0); GLOMERULAR FILTRATION RATE > 60; GLUCOSE 101 mg/dL (70-100); POTASSIUM 4.2 mEq/L (3.5-5.2); SODIUM 142 mEq/L (134-144)
[2016-08-14 19:26] LABS: TROPONIN I < 0.012 ng/mL (0-0.034)
[2016-08-14 20:15] VITALS: BP 126/66; PULSE 84; RESP 18
== END 2016-08-14 20:14 | disposition home or self-care (01) ==
LOC: CED 18:08
DX: M25.562 Pain in left knee (principal); R60.9 Edema, unspecified; Z79.82 Long term (current) use of aspirin; Z87.891 Personal history of nicotine dependence
CPT/HCPCS: 71020-PO; 73562-PO; 80048-PO; 83880-PO; 84484-PO; 85025-PO; 85610-PO; 85730-PO; 93971-PO

== ENCOUNTER → 2017-04-08 | Outpatient (CLI) | payer OTHER, MEDICAID | LOC: CIMAGING 13:01 | PROVIDERS: ATTEND Family Medicine | DX: N63.13 Unspecified lump in the right breast, lower outer quadrant (principal); N63.21 Unspecified lump in the left breast, upper outer quadrant | CPT/HCPCS: 76641-PO ==

== ENCOUNTER → 2017-04-14 | Outpatient (CLI) | payer OTHER, MEDICAID ==
[~2017-04-14] MED LIST: BUPIVACAINE 0.5% 30 ML SDV ONE; LIDOCAINE 1% 300 MG/30 ML SDV ONE; NA BICARBONATE 50 MEQ/50 ML VIAL ONE; THROMBIN (BOVINE) 5,000 UNIT VIAL TP ONE
== END ==
LOC: FIMAGING 07:08
PROVIDERS: ATTEND Family Medicine
PROC: 0HBV3ZZ Excision of Bilateral Breast, Percutaneous Approach (ICD-10-PCS; principal; 2017-04-14)
DX: D05.91 Unspecified type of carcinoma in situ of right breast (principal)

== ENCOUNTER → 2017-05-06 | Outpatient (CLI) | payer OTHER, MEDICAID | LOC: BMCIMAGING 11:16 | PROVIDERS: ATTEND Internal Medicine Hematology & Oncology | DX: Z13.820 Encounter for screening for osteoporosis (principal); M81.0 Age-related osteoporosis without current pathological fracture; E07.9 Disorder of thyroid, unspecified; C50.911 Malignant neoplasm of unspecified site of right female breast; Z82.62 Family history of osteoporosis ==

== ENCOUNTER 2017-05-14 07:08 | Day surgery (SDC) | payer OTHER, MEDICAID ==
[2017-05-14] MEDS ORDERED: ceFAZolin 2 GM/SWFI 2 GM/20 ML SYR IVP ONE (07:40)
--- NOTE | 2017-05-14 07:48 | PDHPUP ---
History & Physical Update H&P update statement: This history and physical update is based on an assessment of the patient which was completed after admission or registration (within 24 hours), but prior to the surgery/procedure. H&P update: H&P reviewed & patient examined, no change in patient's condition since H&P completed
[2017-05-14] MEDS ORDERED: BUPIVACAINE 0.5% 10 ML SDV ONE ×2 (08:15)
[2017-05-14] MEDS ORDERED: LIDOCAINE 1% 300 MG/30 ML SDV ONE (08:15)
[2017-05-14] MEDS ORDERED: LR 1,000 ML IV ONE (08:16)
--- NOTE | 2017-05-14 08:48 | CPEKG ---
Heart Rate: 78 RR Interval: 769 QRSD Interval: 86 QT Interval: 424 QTC Interval: 484 QRS [place]: 111 T Wave [place]: 25 EKG Severity - ABNORMAL ECG - EKG Impression: ATRIAL FIBRILLATION, V-RATE 59-86 EKG Impression: LEFT POSTERIOR FASCICULAR BLOCK EKG Impression: CONSIDER ANTEROSEPTAL INFARCT Electronically Signed By: Leland Domínguez 14-May-2017 18:18:32
[2017-05-14 09:35] VITALS: PULSE 86
--- NOTE | 2017-05-14 09:36 | PDANEPAE ---
ANE History of Present Illness r breast mass ANE Past Medical History - Cardiovascular History Hx Hypertension: Yes Hx Arrhythmias: Yes Hx Chest Pain: No Hx Coronary Artery / Peripheral Vascular Disease: No Hx CHF / Valvular Disease: No Hx Palpitations: No - Pulmonary History Hx COPD: No Hx Asthma/Reactive Airway Disease: No Hx Recent Upper Respiratory Infection: No Hx Oxygen in Use at Home: No Hx Sleep Apnea: Yes Sleep Apnea Screening Result - Last Documented: Positive Pulmonary History Comment: SOPHIE - Neurologic History Hx Cerebrovascular Accident: No Hx Seizures: No Hx Dementia: Yes Neurologic History Comment: mild dementia - Endocrine History Hx Diabetes: No - Renal History Hx Renal Disorders: No - Liver History Hx Hepatic Disorders: No - Neurological & Psychiatric Hx Hx Neurological and Psychiatric Disorders: Yes Neurological / Psychiatric History Comment: restless leg,essential tremor. anxiety,depression - Cancer History Hx Cancer: Yes Cancer History Comment: lumpectomy L breast. colon CA - Congenital Disorder History Hx Congenital Disorders: Yes Congenital History Comment: essential tremor - GI History Hx Gastrointestinal Disorders: Yes Gastrointestinal History Comment: IBS, gerd,reflux - Other Health History Other Health History: [place]. bottom back missing teeth - Chronic Pain History Chronic Pain: Yes (lower back) - Surgical History Prior Surgeries: none ANE Review of Systems Review of Systems: - Exercise capacity METS (RN): 1 METS ANE Patient History - Allergies Allergies/Adverse Reactions: sulfamethoxazole [Sulfamethoxazole] Allergy (Unknown, Verified 08/14/16 18:20) - Home Medications Home Medications: Aspirin EC [Aspirin EC 81 mg (*)] 81 mg PO DAILY@1700 07/27/16 [Last Taken 07/26] Carvedilol [Coreg] 12.5 mg PO BIDMEAL 07/27/16 [Last Taken 07/27/16 09:00 1 dose ] Dicyclomine [Bentyl 20 MG (*)] 20 mg PO BID 07/27/16 [Last Taken 07/27/16 09:00 1 dose] Escitalopram Oxalate [Lexapro] 20 mg PO DAILY 07/27/16 [Last Taken 07/27/16] LORazepam [Ativan (*)] 1 mg PO BID 07/27/16 [Last Taken 07/27/16 09:00 1 tab] Levothyroxine [Synthroid 75 mcg (*)] 75 mcg PO DAILY@1700 07/27/16 [Last Taken 07/26/16] Memantine HCl 1 each PO AD 07/27/16 [Last Taken 07/27/16 09:00 1 tab] Montelukast Sodium [Singulair 10 mg (*)] 10 mg PO HS 07/27/16 [Last Taken ] Omeprazole [Prilosec 20 mg] 20 mg PO DAILY 07/27/16 [Last Taken 07/27/16] rOPINIRole HCL [Ropinirole HCl] 2 mg PO HS PRN 07/27/16 [Last Taken 07/26/16] Diphenoxylate HCl/Atrop Sulf [Lomotil Tab (*)] 08/05/16 [Last Taken Unknown] Singulair 08/05/16 [Last Taken Unknown] Ventolin Hfa Inhaler 08/05/16 [Last Taken Unknown] - Smoking Hx Smoking Status: Former smoker - Family Anes Hx Family Hx Anesthesia Complications: none ANE Labs/Vital Signs - Labs Result Diagrams: 05/14/17 08:25 05/14/17 08:25 - Vital Signs Height: 161.29 cm Weight: 58.513 kg ANE Physical Exam - Airway Neck exam: FROM Mallampati Score: Class 3 Mouth exam: normal dental/mouth exam - Pulmonary Pulmonary: no respiratory distress - Cardiovascular Cardiovascular: regular rate and rhythym - ASA Status ASA Status: III ANE Anesthesia Plan Anesthesia Plan: GA w LMA
[2017-05-14] MEDS ORDERED: MIDAZOLAM 2 MG/2 ML VIAL IVP ONE (09:37)
[2017-05-14] MEDS ORDERED: DEXAMETHASONE 4 MG/ML VIAL ONE (10:06)
[2017-05-14] MEDS ORDERED: ONDANSETRON 4 MG/2 ML VIAL ONE (10:06)
[2017-05-14] MEDS ORDERED: fentaNYL 100 MCG/2 ML INJ ONE (10:06)
[2017-05-14] MEDS ORDERED: ESMOLOL HCL 100 MG/10 ML VIAL IV ONE (10:06)
[2017-05-14] MEDS ORDERED: PROPOFOL 200 MG/20 ML VIAL ONE (10:06)
[2017-05-14] MEDS ORDERED: LIDOCAINE 2% 5 ML SDV ONE (10:07)
[2017-05-14] MEDS ORDERED: ceFAZolin 2 GM/SWFI 20 ML SYR IVP ONE (10:16)
--- NOTE | 2017-05-14 11:11 | GCON ---
[f rep st] CONSULTATION ADDENDUM TO PREVIOUSLY DICTATED REPORT The patient has now had her surgical procedure by Dr. Castellanos, and she is planning to be discharged later on today. I have spoken with Dr. Castellanos, and it is fine with her for the patient to start taking Eliquis 5 mg twice a day beginning on Wednesday. I have talked to the patient and told her not to take any Eliquis until Wednesday morning and then to start taking it 2 times a day. She will do this and understands. Then, she is going to follow up with me in the office in 4 weeks' time. The plan will be that if she is still in atrial fibrillation, we will try elective cardioversion. If she is out of atrial fibrillation, I will try to convince her to stay on full anticoagulation given her age and history, and we will do her workup for cardiovascular disease and risk stratify her. She has no chest pain. She is having no symptoms of heart failure. She does not feel her atrial fibrillation in any way, and she is rate-controlled well. All of her questions have been answered. /[id number] ORIGINAL REPORT CARDIOLOGY CONSULTATION. HISTORY OF PRESENT ILLNESS: This patient is admitted to the hospital for a breast biopsy, and she was found to have atrial fibrillation, and Anesthesia has asked us to see the patient. She is a very healthy, pleasant, wonderful lady from [place]. She has been in [place] for 9 years. She lives with her daughter here. She had breast cancer in the left breast 30 years ago, and just had a lumpectomy, did very well, but recently has been found to have right breast cancer, and she is here now to get a sentinel node biopsy and further care by Dr. Castellanos. The patient herself has no orthopnea, PND, dyspnea on exertion. No pleuritic chest pain. No fever, chills, or cough. No syncope near syncope. No hot swollen joints or major rashes. She has no photophobia, stiff neck, sore throat. She has no trauma to the head, neck, or chest. She has no fever, chills, or cough. No nausea, vomiting, diarrhea. No headache, stiff neck, photophobia, sore throat. She has been active. She walks around and does things on a regular basis, and does not have any problem with that. She has had toe surgery recently and some friend is working with her and physical therapy to make sure everything is going well, but that has slowed her up. She has a long history of many surgical procedures. She has hypothyroidism and she has some gastroesophageal issues, and she had remote atrial fibrillation. During a procedure in [place] many years ago, she had to have cardioversion to bring her out of atrial fibrillation. She was on anticoagulation for 1 month, and never had a problem after that time. She has no symptoms of atrial fibrillation. She was in the hospital 07/2016, and at that time she came in with some shortness of breath, cough, fever, weakness, and confusion. It was thought that maybe she had a flu, and she went through that hospitalization and did well. It was thought that maybe she had a bacterial pneumonia at that time, community-acquired, and was treated with antibiotics and completed a full course of Tamiflu. Her long-term hypothyroidism has been treated and done well. CARDIAC RISK FACTORS: Negative for family history of premature coronary disease , hypertension, diabetes mellitus, hyperlipidemia, hyperuricemia, smoking, obesity. She has no family history of premature coronary disease. She has never had coronary artery disease, stenting, bypass surgery, or myocardial infarction. PAST MEDICAL HISTORY: Surgery: There is a long list of procedures she has had , and I am not going to review that, it is in the chart. REVIEW OF SYSTEMS: 10-point review of systems negative except as noted above. FAMILY HISTORY: There is no family history of premature coronary disease. There is no family history of early cardiac , and there is no family history of unexplained sudden cardiac . MEDICATIONS: Listed in the record and not repeated here. 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 [place] 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 She is active. She lives with her daughter. She is a woman who does not smoke and does not drink significant amounts of alcohol. She has 1 child, who is this daughter. She has been in [place] for 9 years from [place]. PHYSICAL EXAMINATION: VITAL SIGNS: Blood pressure 137/70, heart rate is 80, respiratory rate is 12. HEENT: Pupils equal and reactive. Mucous membranes of the mouth moist. NECK: Supple. CARDIOVASCULAR: S1, S2. Soft systolic murmur, left sternal border. No diastolic murmur. Irregularly irregular. CVA: No tenderness. PULMONARY: No rhonchi, no rales, wheezing, or dullness. ABDOMEN: Soft, nontender, without masses. EXTREMITIES: No edema , inflammation, or ulceration, or pain. NEUROLOGIC: Shows motor and sensory grossly intact. PSYCH: Shows no obvious anxiety or depression. SKIN: Shows age-related changes. LABS AND STUDIES: EKG shows atrial fibrillation without acute ST changes. She has a controlled ventricular response. Other labs are attached and not repeated into the record. ASSESSMENT AND PLAN: 1. Atrial fibrillation. She should be on full anticoagulation, and they are going to start this right after surgery. I have talked to the patient and told her that she is at mildly increased risk for stroke, , or complications from surgery because of atrial fibrillation, but I think it is a reasonable risk , and I recommend she proceed with surgery at this time. She would like to do that, and is interested in going right ahead and not stopping. She has no reason for preoperative surgical testing from a cardiovascular point of view, in that she has no symptoms of ischemia, she has no heart failure symptoms, she has no arrhythmias, and she is not having neurologic or significant pulmonary complaints. She should do very well with this surgery. She will follow up with me as an outpatient, and we will try cardioversion after 5 weeks of anticoagulation, with a transesophageal echocardiogram if she is interested at that time. Right now, she should do well with her surgery, and I fully support going ahead. I have met with her and answered all the questions. I have talked to Anesthesia and the nursing staff. 2. Breast cancer. 3. Remote breast cancer, left breast. 4. Hypothyroidism. 5. Gastroesophageal reflux disease. 6. Irritable bowel history. 7. Recent toe surgery. Thank you very much for asking us to see this patient. We will see her again after surgery, and call us during the procedure if there is anything we can do to help. /[id number]/MODL MTDD
[2017-05-14] MEDS ORDERED: HYDROmorphONE/DILAUDID 1 MG/ML INJ IVP PRN (11:22)
[2017-05-14] MEDS ORDERED: NALOXONE HCL 0.4 MG/ML INJ IVP PRN (11:22)
[2017-05-14] MEDS ORDERED: DEXAMETHASONE 4 MG/ML VIAL IVP PRN (11:22)
[2017-05-14] MEDS ORDERED: PROMETHAZINE HCL 25 MG/ML INJ IVP PRN (11:22)
[2017-05-14] MEDS ORDERED: fentaNYL 100 MCG/2 ML INJ IVP PRN (11:22)
--- NOTE | 2017-05-14 11:29 | POSTOPPROG ---
Post Op Note Date of Operation: 05/14/17 Surgeon: Nayana Castellanos Anesthesiologist: Zulema Anesthesia: GET(General Endotracheal) Pre-op Diagnosis: R breast invasive ductal Post-op Diagnosis: same Indication: 87 yo with invasive ductal Procedure: R lumpectomy R SLN Findings: Neg sln Inf/Abcess present in the surg proc area at time of surgery?: No Depth: Superfical (Skin SQ) EBL: Minimal Specimen(s): lump, sln, margins
--- NOTE | 2017-05-14 11:34 | POSTANESTH ---
Post Anesthetic Evaluation Cardiovascular Status: Normal, Stable Respiratory Status: Normal, Stable Level of Consciousness/Mental Status: Can Participate in Eval Pain Control: Adequate, Prn Tx Ordered Nausea/Vomiting Control: Adequate, Prn Tx Ordered Complications Possibly Related to Anesthesia: None Noted
[2017-05-14 12:28] VITALS: BP 164/108; RESP 17; TEMP 97.7; O2SAT 91
[2017-05-14] MEDS ORDERED: OXYCODONE/APAP 5/325 TAB PO ONE (12:53)
--- NOTE | 2017-05-15 12:52 | GOP ---
[f rep st] OPERATIVE REPORT DATE OF OPERATION: 05/14/2017 SURGEON: Nayana Castellanos MD ANESTHESIA: General. ANESTHESIOLOGIST: Dr. Brenda Poole. PREOPERATIVE DIAGNOSIS: Right breast invasive ductal carcinoma. POSTOPERATIVE DIAGNOSIS: Right breast invasive ductal carcinoma. PROCEDURE PERFORMED: Right breast lumpectomy, right sentinel lymph node. FINDINGS: Negative sentinel lymph node. SPECIMENS: Lumpectomy, sentinel lymph node, and additional margins. ESTIMATED BLOOD LOSS: Minimum. INDICATIONS: An 87-year-old woman with right lower outer invasive ductal carcinoma. DESCRIPTION OF PROCEDURE: The patient was brought into the operating room, placed supine on the tabl e, and general anesthesia was administered. Her right axilla and breast were prepped and draped in t he usual sterile fashion. I infiltrated the areas with 0.5% Marcaine prior to making an incision. I made an incision beneath the hair-bearing portion in her right axilla. I dissected down through the subcutaneous tissues. I used the gamma probe to identify the sentinel lymph node. It measured 700 ex vivo. The background was quiet. Hemostasis was achieved in the cavity. I performed an incision in the inframammary fold. I created a superior end flap. I dissected down beyond the level of the m ass. It was marked green anterior, red superior, yellow medial, blue inferior, orange lateral, and b lack posterior. This was submitted to Pathology for fresh. I took an additional superior margin ink ed red, medial margin inked yellow, inferior margin inked blue, lateral margin inked orange, and post erior margin inked black. I clipped the lumpectomy cavity. I closed the deep layer with 3-0 Vicryl. I closed the skin with 3-0 Vicryl, followed by 4-0 Monocryl. Mastisol, Steri-Strips, and sterile d ressings were applied. She was awakened in the operating room, extubated, and transferred to the PAC U in stable condition. Of note, she was found to have new-onset atrial fibrillation prior to the pro cedure. She was evaluated by Cardiology, who will recommend Eliquis and seeing her on an outpatient basis. She will start Eliquis on Wednesday. /[id number]/MODL
== END 2017-05-14 14:40 | disposition home or self-care (01) ==
LOC: FSGY 07:08
PROVIDERS: ATTEND Surgery
PROC: 3E0W3HZ Introduction of Radioactive Substance into Lymphatics, Percutaneous Approach (ICD-10-PCS; 2017-05-14)
PROC: 07B50ZX Excision of Right Axillary Lymphatic, Open Approach, Diagnostic (ICD-10-PCS; principal; 2017-05-14 09:45)
PROC: 0HBT0ZZ Excision of Right Breast, Open Approach (ICD-10-PCS; principal; 2017-05-14 09:45)
DX: C50.411 Malignant neoplasm of upper-outer quadrant of right female breast (principal); D36.0 Benign neoplasm of lymph nodes; Z17.0 Estrogen receptor positive status [ER+]; I48.91 Unspecified atrial fibrillation; E03.9 Hypothyroidism, unspecified; K21.9 Gastro-esophageal reflux disease without esophagitis; K58.9 Irritable bowel syndrome, unspecified; I10 Essential (primary) hypertension; G47.33 Obstructive sleep apnea (adult) (pediatric); G25.0 Essential tremor; F32.9 Major depressive disorder, single episode, unspecified; F41.9 Anxiety disorder, unspecified; Z85.3 Personal history of malignant neoplasm of breast; Z85.038 Personal history of other malignant neoplasm of large intestine; Z87.891 Personal history of nicotine dependence; Z88.2 Allergy status to sulfonamides
CPT/HCPCS: 19301; 38525; 38792; 93005; A9520; J0690; J1100; J2250; J2405; J2704; J3010

== ENCOUNTER 2017-05-21 05:53 | Day surgery (SDC) | payer OTHER, MEDICAID ==
[2017-05-21] MEDS ORDERED: ceFAZolin 2 GM/SWFI 2 GM/20 ML SYR IVP ONE (06:08)
[2017-05-21 06:40] VITALS: PULSE 80; O2SAT 94
[2017-05-21] MEDS ORDERED: BUPIVACAINE 0.5% 10 ML SDV ONE (06:42)
[2017-05-21] MEDS ORDERED: LR 1,000 ML IV ONE (06:51)
[2017-05-21] MEDS ORDERED: PROPOFOL 200 MG/20 ML VIAL ONE ×2 (07:09→07:56)
[2017-05-21] MEDS ORDERED: fentaNYL 100 MCG/2 ML INJ ONE ×2 (07:09→08:26)
[2017-05-21] MEDS ORDERED: LIDOCAINE 2% 5 ML SDV ONE (07:11)
[2017-05-21] MEDS ORDERED: ACETAMINOPHEN 500 MG TAB PO PRN (07:13)
[2017-05-21] MEDS ORDERED: HYDROCODONE/APAP 5/325 TAB PO PRN (07:13)
[2017-05-21] MEDS ORDERED: NALOXONE HCL 0.4 MG/ML INJ IVP PRN (07:13)
[2017-05-21] MEDS ORDERED: PROMETHAZINE HCL 25 MG/ML INJ IVP PRN (07:13)
[2017-05-21] MEDS ORDERED: ONDANSETRON 4 MG/2 ML VIAL IVP PRN (07:13)
--- NOTE | 2017-05-21 07:13 | PDANEPAE ---
ANE Past Medical History - Cardiovascular History Hx Hypertension: Yes Hx Arrhythmias: Yes Hx Chest Pain: No Hx Coronary Artery / Peripheral Vascular Disease: No Hx CHF / Valvular Disease: No Hx Palpitations: No - Pulmonary History Hx COPD: No Hx Asthma/Reactive Airway Disease: No Hx Recent Upper Respiratory Infection: No Hx Oxygen in Use at Home: No Hx Sleep Apnea: Yes Sleep Apnea Screening Result - Last Documented: Positive Pulmonary History Comment: SOPHIE - Neurologic History Hx Cerebrovascular Accident: No Hx Seizures: No Hx Dementia: Yes Neurologic History Comment: mild dementia - Endocrine History Hx Diabetes: No - Renal History Hx Renal Disorders: No - Liver History Hx Hepatic Disorders: No - Neurological & Psychiatric Hx Hx Neurological and Psychiatric Disorders: Yes Neurological / Psychiatric History Comment: restless leg,essential tremor. anxiety,depression - Cancer History Hx Cancer: Yes Cancer History Comment: lumpectomy L breast. colon CA - Congenital Disorder History Hx Congenital Disorders: Yes Congenital History Comment: essential tremor - GI History Hx Gastrointestinal Disorders: Yes Gastrointestinal History Comment: IBS, gerd,reflux - Other Health History Other Health History: TANGIRNAQ. bottom back missing teeth. Pt needs warm blankets. previous incision site with bruising - Chronic Pain History Chronic Pain: Yes (lower back) - Surgical History Prior Surgeries: right breast biopsy with lymphnode removal ANE Review of Systems Review of Systems: - Exercise capacity METS (RN): 1 METS ANE Patient History - Allergies Allergies/Adverse Reactions: sulfamethoxazole [Sulfamethoxazole] Allergy (Unknown, Verified 05/21/17 06:18) - Home Medications Home Medications: Aspirin EC [Aspirin EC 81 mg (*)] 07/27/16 [Last Taken 05/20/17] Carvedilol [Coreg] 07/27/16 [Last Taken 05/20/17] Dicyclomine [Bentyl 20 MG (*)] 07/27/16 [Last Taken 05/20/17] Escitalopram Oxalate [Lexapro] 07/27/16 [Last Taken 05/20/17] LORazepam [Ativan (*)] 07/27/16 [Last Taken 05/20/17] Levothyroxine [Synthroid 75 mcg (*)] 07/27/16 [Last Taken 05/20/17] Memantine HCl 07/27/16 [Last Taken 05/20/17] Montelukast Sodium [Singulair 10 mg (*)] 07/27/16 [Last Taken 05/20/17] Omeprazole [Prilosec 20 mg] 07/27/16 [Last Taken 05/20/17] rOPINIRole HCL [Ropinirole HCl] 07/27/16 [Last Taken 05/20/17] Diphenoxylate HCl/Atrop Sulf [Lomotil Tab (*)] 08/05/16 [Last Taken 05/20/17] Singulair 08/05/16 [Last Taken 05/20/17] Ventolin Hfa Inhaler 08/05/16 [Last Taken 05/20/17] predniSONE 05/20/17 [Last Taken 05/20/17] - NPO status NPO Since - Liquids (Date): 05/20/17 NPO Since - Liquids (Time): 21:00 NPO Since - Solids (Date): 05/20/17 NPO Since - Solids (Time): 19:00 - Anes Hx Anes Hx: no prior problems - Smoking Hx Smoking Status: Former smoker - Family Anes Hx Family Hx Anesthesia Complications: none ANE Labs/Vital Signs - Vital Signs Blood Pressure: 145/69 Heart Rate: 80 Respiratory Rate: 16 O2 Sat (%): 94 Height: 162.56 cm Weight: 62.596 kg ANE Physical Exam - Airway Neck exam: FROM Mallampati Score: Class 3 Mouth exam: normal dental/mouth exam - Pulmonary Pulmonary: no respiratory distress, no rales or rhonchi, clear to auscultation - Cardiovascular Cardiovascular: regular rate and rhythym ANE Anesthesia Plan Anesthesia Plan: GA with mask
[2017-05-21] MEDS ORDERED: LIDOCAINE 1% 300 MG/30 ML SDV ONE (07:29)
[2017-05-21] MEDS ORDERED: THROMBIN (BOVINE) 5,000 UNIT VIAL TP ONE (07:56)
--- NOTE | 2017-05-21 08:11 | POSTOPPROG ---
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
[2017-05-21] MEDS: fentaNYL 100 MCG/2 ML INJ IVP PRN ×3 (08:28→09:02)
--- NOTE | 2017-05-21 08:35 | POSTANESTH ---
Post Anesthetic Evaluation Cardiovascular Status: Similar to Pre-Op Cond Respiratory Status: Normal, Stable, Similar to Pre-op Cond. Level of Consciousness/Mental Status: Can Participate in Eval, Mildly Sleepy, Arousable Pain Control: Adequate, Prn Tx Ordered Nausea/Vomiting Control: Adequate, Prn Tx Ordered Complications Possibly Related to Anesthesia: None Noted
--- NOTE | 2017-05-21 08:36 | GOP ---
[f rep st] OPERATIVE REPORT DATE OF OPERATION: 05/21/2017 SURGEON: Nayana Castellanos MD COMPONENT INSPECTOR: Chasity Phillips PA-C. ANESTHESIOLOGIST: Dr. Rhys Bronson/monitored anesthesia care with IV sedation. PREOPERATIVE DIAGNOSIS: Right breast invasive ductal carcinoma. POSTOPERATIVE DIAGNOSIS: Right breast invasive ductal carcinoma. PROCEDURE PERFORMED: Re-excision right breast margins. FINDINGS: Hematoma SPECIMENS: Green anterior, red superior, yellow medial, blue inferior, orange lateral, black posterior. ESTIMATED BLOOD LOSS: 10 cc. INDICATIONS: Delilah Rivera is an 87-year-old woman who had invasive ductal carcinoma. I took her for lumpectomy and sentinel node and while all the invasive ductal had clear margins, the DCIS was either focally at the margin or extremely close margin. She presents for re-excision. DESCRIPTION OF PROCEDURE: The patient was brought into the operating room, placed supine on the table, and monitored anesthesia care with IV sedation was performed. Her right breast was prepped and draped in the usual sterile fashion. I infiltrated all sites with 0.5% Marcaine mixed with 1% lidocaine. I made an incision over the scar. I evacuated a very large hematoma. I grasped anterior and inked this green, superior red, yellow medial, blue inferior, orange lateral, black posterior. Hemostasis was achieved in the cavity. Thrombin was placed. I closed the deep layer with 3-0 Vicryl. I closed skin with 3-0 Vicryl followed by 4-0 Monocryl. Mastisol, Steri-Strips, and sterile dressings were applied. She was awakened in the operating room, transferred to PACU in stable condition. /[id number]/MODL MTDD
[2017-05-21 09:09] VITALS: RESP 21
[2017-05-21 09:57] VITALS: TEMP 98.1
[2017-05-21 09:59] VITALS: BP 166/90
== END 2017-05-21 10:03 | disposition home or self-care (01) ==
LOC: FSGY 05:53
PROVIDERS: ATTEND Surgery
PROC: 0HBT0ZZ Excision of Right Breast, Open Approach (ICD-10-PCS; principal; 2017-05-21 07:30)
DX: C50.911 Malignant neoplasm of unspecified site of right female breast (principal); M81.0 Age-related osteoporosis without current pathological fracture; K58.9 Irritable bowel syndrome, unspecified; D50.9 Iron deficiency anemia, unspecified; J44.9 Chronic obstructive pulmonary disease, unspecified; I48.91 Unspecified atrial fibrillation; E03.9 Hypothyroidism, unspecified; E78.5 Hyperlipidemia, unspecified; K21.9 Gastro-esophageal reflux disease without esophagitis; G47.33 Obstructive sleep apnea (adult) (pediatric); G25.81 Restless legs syndrome; I10 Essential (primary) hypertension; Z78.0 Asymptomatic menopausal state; Z79.82 Long term (current) use of aspirin; Z87.891 Personal history of nicotine dependence; Z88.2 Allergy status to sulfonamides
CPT/HCPCS: J0690; J2704; J3010

== ENCOUNTER 2017-06-18 08:29 | Inpatient (IN) | payer OTHER, MEDICAID ==
[2017-06-18] MEDS ORDERED: ceFAZolin 2 GM/SWFI 2 GM/20 ML SYR IVP ONE (08:38)
[2017-06-18] MEDS ORDERED: MIDAZOLAM 2 MG/2 ML VIAL IVP ONE (09:48)
[2017-06-18] MEDS ORDERED: THROMBIN (BOVINE) 20,000 UNIT SPRAY TP ONE (09:59)
[2017-06-18] MEDS ORDERED: BUPIVACAINE 0.5% 30 ML SDV ONE (09:59)
--- NOTE | 2017-06-18 10:05 | PDANEPAE ---
ANE History of Present Illness R mastectomy ANE Past Medical History - Cardiovascular History Hx Hypertension: Yes Hx Arrhythmias: Yes Hx Chest Pain: No Hx Coronary Artery / Peripheral Vascular Disease: No Hx CHF / Valvular Disease: No Hx Palpitations: No Cardiovascular History Comment: admitted to hospital from surgery center on 05/02 for afib- asymptomatic. hx of afib in [place] during a procedure many years ago requiring 2 CV and anticoags x1 mo. hyperlipidemia - Pulmonary History Hx COPD: No Hx Asthma/Reactive Airway Disease: No Hx Recent Upper Respiratory Infection: No Hx Oxygen in Use at Home: No Hx Sleep Apnea: Yes Sleep Apnea Screening Result - Last Documented: Positive Pulmonary History Comment: vinayak positive- uses cpap- instructed daughter to bring to hospital. hx of pna - Neurologic History Hx Cerebrovascular Accident: No Hx Seizures: No Hx Dementia: Yes Neurologic History Comment: mild dementia. essential tremor is worse now since stopping primidone. hx of migraines. restless leg syndrome. hx of vertigo - Endocrine History Hx Diabetes: No Endocrine History Comment: hypothyroidism - Renal History Hx Renal Disorders: No - Liver History Hx Hepatic Disorders: No - Neurological & Psychiatric Hx Hx Neurological and Psychiatric Disorders: Yes Neurological / Psychiatric History Comment: anxiety. depression - Cancer History Hx Cancer: Yes Cancer History Comment: breast ca currently- 2 breast biopsies 05/14/17 and 11/30 now needs to have mastectomy d/t "finding more" per daughter. lumpectomy L breast. colon CA - Congenital Disorder History Hx Congenital Disorders: No Congenital History Comment: essential tremor - GI History Hx Gastrointestinal Disorders: Yes Gastrointestinal History Comment: ibs. reflux - Other Health History Other Health History: bilateral hearing aides. glasses. bottom back missing teeth. hx of anemia - Chronic Pain History Chronic Pain: Yes (lower back) - Surgical History Prior Surgeries: 05/21/17 right breast re-excision with Emanuel. 05/14/17 right breast biopsy with lymph node removal with Emanuel at surgery center ANE Review of Systems Review of systems is: negative Review of Systems: - Exercise capacity METS (RN): 3 METS ANE Patient History - Allergies Allergies/Adverse Reactions: No Known Allergies Allergy (Verified 06/17/17 14:49) - Home Medications Home medications: home medication list seen and reviewed Home Medications: Escitalopram Oxalate [Lexapro] 20 mg PO DAILY 07/27/16 [Last Taken 06/18/17] Levothyroxine [Synthroid 75 mcg (*)] 75 mcg PO DAILY06 07/27/16 [Last Taken 08/30] Montelukast Sodium [Singulair 10 mg (*)] 10 mg PO HS 07/27/16 [Last Taken ] Omeprazole [Prilosec 20 mg] 20 mg PO DAILY PRN 07/27/16 [Last Taken 06/18/17] Albuterol [Proventil Inhaler HFA (*)] 2 puffs IH Q4H PRN #0 08/05/16 [Last Taken 05/20/17] Diphenoxylate HCl/Atrop Sulf [Lomotil Tab (*)] 1 tab PO BID 08/05/16 [Last Taken 06/18/17] Apixaban [Eliquis] 5 mg PO BID 06/17/17 [Last Taken 06/18/17] Calcium Carb W/Vit D [Calcium Carb W/Vit D 500/200 (*)] 500 mg PO DAILY [Last Taken 06/18/17] Carvedilol [Coreg (*)] 12.5 mg PO BIDMEAL 06/17/17 [Last Taken 06/18/17] Fexofenadine HCl [Patricia Allergy] 60 mg PO DAILY 06/17/17 [Last Taken Unknown] Fluticasone Nasal [Flonase Nasal [place] (RX)] 1 sprays NASAL BID 06/17/17 [Last Taken Unknown] Ipratropium 0.06% Nasal [Atrovent 0.06% Nasal (RX)] 2 sprays EACHNARE TID PRN [Last Taken Unknown] Multivitamins [Multivitamin (*)] 1 each PO DAILY 06/17/17 [Last Taken 06/18/17] Zolpidem Tartrate [Ambien 5MG (*)] 5 mg PO HS 06/17/17 [Last Taken 06/18/17] rOPINIRole HCL [Requip 2mg (*)] 2 mg PO DAILY PRN 06/17/17 [Last Taken Unknown] rOPINIRole HCL [Requip 2mg (*)] 4 mg PO HS 06/17/17 [Last Taken 06/18/17] - NPO status NPO Since - Liquids (Date): 06/18/17 NPO Since - Liquids (Time): 06:00 NPO Since - Solids (Date): 06/17/17 NPO Since - Solids (Time): 18:00 - Smoking Hx Smoking Status: Former smoker - Family Anes Hx Family Hx Anesthesia Complications: none ANE Labs/Vital Signs - Vital Signs Blood Pressure: 145/84 Heart Rate: 76 Respiratory Rate: 16 O2 Sat (%): 95 Height: 162.56 cm Weight: 62.596 kg ANE Physical Exam - Airway Neck exam: FROM Mallampati Score: Class 2 Mouth exam: poor dentition - Pulmonary Pulmonary: no respiratory distress - Cardiovascular Cardiovascular: regular rate and rhythym - ASA Status ASA Status: III ANE Anesthesia Plan Anesthesia Plan: GA w LMA
[2017-06-18] MEDS ORDERED: LIDOCAINE 2% 100 MG/5 ML SYR ONE (10:22)
[2017-06-18] MEDS ORDERED: DEXAMETHASONE 4 MG/ML VIAL ONE (10:22)
[2017-06-18] MEDS ORDERED: ONDANSETRON 4 MG/2 ML VIAL ONE (10:22)
[2017-06-18] MEDS ORDERED: PROPOFOL 200 MG/20 ML VIAL ONE (10:23)
[2017-06-18] MEDS ORDERED: fentaNYL 100 MCG/2 ML INJ ONE ×2 (10:23→11:50)
[2017-06-18] MEDS ORDERED: PHENYLEPHRINE HCL 100 MCG/ML SYR ONE (11:06)
[2017-06-18] MEDS ORDERED: NALOXONE HCL 0.4 MG/ML INJ IVP PRN (11:15)
[2017-06-18] MEDS ORDERED: oxyCODONE IR 5 MG TAB PO PRN (11:15)
[2017-06-18] MEDS ORDERED: MEPERIDINE 25 MG/ML SYR IVP PRN (11:15)
[2017-06-18] MEDS ORDERED: LABETALOL HCL 5 MG/ML 20 ML MDV IVP PRN (11:15)
[2017-06-18] MEDS ORDERED: ACETAMINOPHEN 500 MG TAB PO PRN (11:15)
[2017-06-18] MEDS ORDERED: HYDROCODONE/APAP 5/325 TAB PO PRN (11:15)
[2017-06-18] MEDS ORDERED: DEXAMETHASONE 4 MG/ML VIAL IVP PRN (11:15)
[2017-06-18] MEDS ORDERED: ENALAPRILAT DIHYDRATE 1.25 MG/ML VIAL IVP PRN (11:15)
[2017-06-18] MEDS ORDERED: HYDROmorphONE/DILAUDID 1 MG/ML INJ IVP PRN (11:15)
--- NOTE | 2017-06-18 11:18 | POSTANESTH ---
Post Anesthetic Evaluation Cardiovascular Status: Similar to Pre-Op Cond Respiratory Status: Similar to Pre-op Cond. Level of Consciousness/Mental Status: Can Participate in Eval, Moderately Sleepy Pain Control: Adequate, Prn Tx Ordered Nausea/Vomiting Control: Adequate, Prn Tx Ordered Complications Possibly Related to Anesthesia: None Noted
--- NOTE | 2017-06-18 11:33 | POSTOPPROG ---
Post Op Note Date of Operation: 06/18/17 Surgeon: Nayana Castellanos Senior [employer] Dba: jesse Anesthesiologist: siva Anesthesia: GET(General Endotracheal) Pre-op Diagnosis: R breast DCIS Post-op Diagnosis: same Indication: 87yo F with DCIS and positive margin Procedure: R mastectomy Findings: None unusual Inf/Abcess present in the surg proc area at time of surgery?: No EBL: 50-100 Drains: Geronimo Mason
[2017-06-18] MEDS ORDERED: ONDANSETRON DISINTEGRATING 4 MG TAB PO PRN (11:34)
[2017-06-18] MEDS ORDERED: HYDROmorphone HCL/NS 0.5 MG/ML SYR IVP PRN (11:34)
[2017-06-18] MEDS ORDERED: ONDANSETRON 4 MG/2 ML VIAL IVP PRN (11:34)
[2017-06-18] MEDS ORDERED: diphenhydrAMINE 25 MG CAP PO PRN (11:34)
[2017-06-18] MEDS ORDERED: IPRATROPIUM 0.06% NASAL SPRAY EACHNARE PRN (11:35)
[2017-06-18] MEDS ORDERED: ALBUTEROL 60 PUFFS/8 GM MDI IH PRN (11:35)
[2017-06-18] MEDS: fentaNYL 100 MCG/2 ML INJ IVP PRN ×2 (11:52→12:01)
[2017-06-18] MEDS ORDERED: HYDROCODONE/APAP 5/325 TAB ONE (12:44)
--- NOTE | 2017-06-18 15:54 | ASMTCMCOM ---
CM Note CM Note Notes: Pt admitted for rt mastectomy. Prior to surgery, [facility] HC RN arranged by MD's office. [facility] alerted to pt's admission. DC unclear. Date Signed: 06/18/2017 03:53 PM Electronically Signed By:Vannesa Mackey LCSW
[2017-06-18] MEDS: HYDROCODONE/APAP 5/325 TAB PO PRN (16:33)
[2017-06-18] MEDS: CARVEDILOL 6.25 MG TAB PO SCH (18:23)
[2017-06-18] MEDS: ZOLPIDEM TARTRATE 5 MG TAB PO SCH (21:38)
[2017-06-18] MEDS: FLUTICASONE NASAL 120 SPRAYS/16 GM MDI EACHNARE SCH (21:38)
[2017-06-18] MEDS: MONTELUKAST SODIUM 10 MG TAB PO SCH (21:39)
[2017-06-18] MEDS: ACETAMINOPHEN 325 MG TAB PO PRN (21:39)
[2017-06-18] MEDS: APIXABAN 5 MG TAB PO SCH (21:39)
[2017-06-18] MEDS: DIPHENOXYLATE/ATROPINE LOMOTIL 1 TAB PO SCH (21:39)
[2017-06-19] MEDS: LEVOTHYROXINE 75 MCG TAB PO SCH (05:28)
[2017-06-19] MEDS ORDERED: PANTOPRAZOLE SODIUM 40 MG TAB PO PRN (09:00)
[2017-06-19] MEDS: DIPHENOXYLATE/ATROPINE LOMOTIL 1 TAB PO SCH ×2 (11:12→20:24)
[2017-06-19] MEDS: HYDROCODONE/APAP 5/325 TAB PO PRN (11:12)
[2017-06-19] MEDS: ESCITALOPRAM OXALATE 10 MG TAB PO SCH (11:12)
[2017-06-19] MEDS: APIXABAN 5 MG TAB PO SCH ×2 (11:12→20:24)
[2017-06-19] MEDS: CALCIUM CARB W/VIT D 500 MG TAB PO SCH (11:18)
[2017-06-19] MEDS: CETIRIZINE 10 MG TAB PO SCH (11:18)
[2017-06-19] MEDS: FLUTICASONE NASAL 120 SPRAYS/16 GM MDI EACHNARE SCH ×2 (11:30→20:24)
[2017-06-19] MEDS: CARVEDILOL 6.25 MG TAB PO SCH ×2 (12:09→18:19)
--- NOTE | 2017-06-19 15:24 | SOAPPROG ---
SOAP Progress Note Assessment/Plan: Assessment: POD # 1 s/p r mastectomy for invasive ductal carcinoma with substantial DCIS restless leg a fib PT OT Continue DAVID drain S: Has only ambulated to bathroom. Some pain. Complains of restless legs and did not sleep well last night Sitting up in bed. Daughter at bedside. Appears well Ecchymosis on chest DAVID drain with serosanguinous drainage Dressing dry CTAB Regular rate Plan: 06/19/17 15:22 Objective: Vital Signs Temp Pulse Resp BP Pulse Ox 36.8 C 87 16 113/54 L 91 L 06/19/17 12:36 06/19/17 12:36 06/19/17 12:36 06/19/17 12:36 06/19/17 12:36 06/18/17 06/19/17 06/20/17 05:59 05:59 05:59 Intake Total 1500 Output Total 1085 Balance 415 ICD10 Worksheet Patient Problems: Problems Problem Status Onset Afib Acute Atrial fibrillation Acute Chronic Disease [facility]/Transitional Care Acute Generalized weakness Acute Influenza B Acute Pneumonia Acute
--- NOTE | 2017-06-19 15:56 | PDMN ---
Medical Necessity Medical necessity: C/M review: est. > 2 MN LOS for eval and TX of acute and persistent postop pain, minimal ambulation, restless legs, right breast DAVID serosangiunous drainage of 185 ml in prior 24 hrs. S/P 06/18/2017 surgery - right mastectomy for invasive ductal carcinoma with substantial DCIS requiring ongoing pain management, right breast DAVID drain monitoring, acute inpt PT/OT, comorbid atrial fibrillation per 06/19/2017 progress note.
[2017-06-19] MEDS: ZOLPIDEM TARTRATE 5 MG TAB PO SCH (20:24)
[2017-06-19] MEDS: MONTELUKAST SODIUM 10 MG TAB PO SCH (20:25)
[2017-06-19] MEDS: ACETAMINOPHEN 325 MG TAB PO PRN (20:26)
[2017-06-20] MEDS: HYDROCODONE/APAP 5/325 TAB PO PRN ×3 (02:48→21:42)
[2017-06-20] MEDS: LEVOTHYROXINE 75 MCG TAB PO SCH (05:57)
[2017-06-20] MEDS: ESCITALOPRAM OXALATE 10 MG TAB PO SCH (09:37)
[2017-06-20] MEDS: CETIRIZINE 10 MG TAB PO SCH (09:38)
[2017-06-20] MEDS: CARVEDILOL 6.25 MG TAB PO SCH ×2 (09:38→18:52)
[2017-06-20] MEDS: DIPHENOXYLATE/ATROPINE LOMOTIL 1 TAB PO SCH ×2 (09:43→21:36)
[2017-06-20] MEDS: CALCIUM CARB W/VIT D 500 MG TAB PO SCH (09:48)
[2017-06-20] MEDS: APIXABAN 5 MG TAB PO SCH ×2 (09:48→21:37)
[2017-06-20] MEDS: FLUTICASONE NASAL 120 SPRAYS/16 GM MDI EACHNARE SCH ×2 (09:49→22:22)
--- NOTE | 2017-06-20 14:15 | PDIAF ---
- Diagnosis Diagnosis: breast cancer Code Status: Full Code - Medication Management Discharge Medications: Medications to Continue on Transfer Escitalopram Oxalate [Lexapro] 20 mg PO DAILY 07/27/16 [Last Taken 06/18/17] Levothyroxine [Synthroid 75 mcg (*)] 75 mcg PO DAILY06 07/27/16 [Last Taken 08/30] Montelukast Sodium [Singulair 10 mg (*)] 10 mg PO HS 07/27/16 [Last Taken ] Omeprazole [Prilosec 20 mg] 20 mg PO DAILY PRN 07/27/16 [Last Taken 06/18/17] Albuterol [Proventil Inhaler HFA (*)] 2 puffs IH Q4H PRN #0 08/05/16 [Last Taken 05/20/17] Diphenoxylate HCl/Atrop Sulf [Lomotil Tab (*)] 1 tab PO BID 08/05/16 [Last Taken 06/18/17] Apixaban [Eliquis] 5 mg PO BID 06/17/17 [Last Taken 06/18/17] Calcium Carb W/Vit D [Calcium Carb W/Vit D 500/200 (*)] 500 mg PO DAILY [Last Taken 06/18/17] Carvedilol [Coreg (*)] 12.5 mg PO BIDMEAL 06/17/17 [Last Taken 06/18/17] Fexofenadine HCl [Patricia Allergy] 60 mg PO DAILY 06/17/17 [Last Taken Unknown] Fluticasone Nasal [Flonase Nasal [place]] 1 sprays NASAL BID 06/17/17 [Last Taken Unknown] Ipratropium 0.06% Nasal [Atrovent 0.06% Nasal] 2 sprays EACHNARE TID PRN [Last Taken Unknown] Multivitamins [Multivitamin (*)] 1 each PO DAILY 06/17/17 [Last Taken 06/18/17] Zolpidem Tartrate [Ambien 5MG (*)] 5 mg PO HS 06/17/17 [Last Taken 06/18/17] rOPINIRole HCL [Requip 2mg (*)] 2 mg PO DAILY PRN 06/17/17 [Last Taken Unknown] rOPINIRole HCL [Requip 2mg (*)] 4 mg PO HS 06/17/17 [Last Taken 06/18/17] Acetaminophen [Tylenol 325mg (*)] 650 mg PO Q6 PRN tab 06/20/17 [Last Taken Unknown] Hydrocodone/APAP 5/325 [[place] 5/325 (*)] 1 tab PO Q4 PRN #20 tab 06/20/17 [Last Taken Unknown] Discharge Medications: Refer to the Discharge Home Medication list for PRN reason. - Orders Services needed: Home Care, Registered Nurse, Certified Taxonomist, Physical Therapy, Occupational Therapy Home Care Face to Face: I certify that this patient was under my care and that I had the required [id number] encounter meeting the encounter requirements on the discharge day. My findings support the fact that the patient is homebound as defined in Home Care Face to Face Continued: CMS Chapter 7 Medicare Benefits Manual 30.1.1 , The condition of the patient is such that there exists a normal inability to leave home and consequently, leaving home would require a considerable and taxing effort. Isolation Type: None Diet Recommendation: no restrictions on diet Wound Care Instructions: Check and record DAVID drain 1-2x per day. Dr. Castellanos will remove the drain when less than 20 cc/day for 2 days in a row. Follow up with Dr. Castellanos in 10 days - sooner if drain output makes criteria. Remove dressing 06/24/2017, sooner if saturated. May shower Activity/Weight Bearing Restrictions: No heavy lifting pushing or pulling greater than 15 lbs for 2 weeks - Follow Up Care Current Providers and Referrals: Nayana Lew MD [Primary Care Provider] - Nayana Castellanos MD [Medical Doctor] - follow up in 10 days
--- NOTE | 2017-06-20 16:04 | ASMTCMCOM ---
CM Note CM Note Notes: Met with pt and her daughter. Daughter was not comfortable with pt discharging home today but felt somewhat reassured when CM said pt would be set up with [facility] RN/PT/OT/MECHANICAL FITTER. Dr Castellanos felt pt was medically ready to d/c and put in the d/c order. Pt's daughter then expressed other concerns to RN and per RN, the d/c order was canceled. Anticipate pt's d/c home tomorrow. Date Signed: 06/20/2017 04:03 PM Electronically Signed By:CECILIO Ware
--- NOTE | 2017-06-20 16:11 | GOP ---
[f rep st] OPERATIVE REPORT DATE OF OPERATION: 06/18/2017 SURGEON: Nayana Castellanos MD SAMPLE PREPARATION SUPERVISOR: Chasity Phillips PA-C ANESTHESIA: Huey Zacarias MD, general. PREOPERATIVE DIAGNOSIS: Right breast ductal carcinoma in situ. POSTOPERATIVE DIAGNOSIS: Right breast ductal carcinoma in situ. PROCEDURE PERFORMED: FINDINGS: SPECIMENS: Right breast tissue short superior, long lateral. ESTIMATED BLOOD LOSS: 50 cc. 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 I performed lumpectomy and sentinel lymph node biopsy. She had a positive margin for DCIS. She returned to the operating room, and again had a positive margin for DCIS. I took her to the operati ng room for mastectomy. DESCRIPTION OF PROCEDURE: Patient was brought into the operating room, placed supine on the table, a nd general anesthesia was administered. Her breast was prepped and draped in the usual sterile fashi on. I made an ellipse on her breast. I created a superior and inferior skin flaps. I dissected to the clavicle, sternum, inframammary fold and mid axillary line. I removed the breast including the p ectoralis fascia. I marked it short superior, long lateral. Hemostasis was achieved. I placed a 15 round silicone drain and sutured this into place with 3-0 nylon. I closed the incision with 3-0 Candido ryl followed by a 3-0 Quill. Mastisol, Steri-Strips and a sterile dressing were applied. She was awakened in the operating room, extubated, transferred to PACU in stable condition. PROCEDURE PERFORMED: Right breast mastectomy. DRAINS: Geronimo-Mason. /[id number]/MODL
[2017-06-20] MEDS: MONTELUKAST SODIUM 10 MG TAB PO SCH (21:36)
[2017-06-20] MEDS: ZOLPIDEM TARTRATE 5 MG TAB PO SCH (21:42)
[2017-06-21] MEDS: LEVOTHYROXINE 75 MCG TAB PO SCH (05:58)
[2017-06-21] MEDS: DIPHENOXYLATE/ATROPINE LOMOTIL 1 TAB PO SCH (09:27)
[2017-06-21] MEDS: APIXABAN 5 MG TAB PO SCH (09:28)
[2017-06-21] MEDS: CALCIUM CARB W/VIT D 500 MG TAB PO SCH (09:29)
[2017-06-21] MEDS: ESCITALOPRAM OXALATE 10 MG TAB PO SCH (09:29)
[2017-06-21] MEDS: CARVEDILOL 6.25 MG TAB PO SCH (09:29)
[2017-06-21] MEDS: CETIRIZINE 10 MG TAB PO SCH (09:29)
[2017-06-21 09:42] VITALS: BP 113/87
--- NOTE | 2017-06-21 10:58 | SOAPPROG ---
SOAP Progress Note Assessment/Plan: Assessment/Plan: 87yo F s/p R mastectomy Pain controlled Regular diet DAVID drain serosanguinous output Dispo: home today with RN, COMPONENT DESIGN ENGINEER, PT and OT. F/u for drain removal when <20cc out x 2 consecutive days S: Feeling well, no complaints this morning. O: Sitting on edge of bed eating breakfast No increased work of breathing Right chest dressing clean, dry and intact. DAVID drain with minimal serosanguineous drainage. Objective: Vital Signs Temp Pulse Resp BP Pulse Ox 36.7 C 81 17 113/87 H 91 L 06/21/17 09:40 06/21/17 09:40 06/21/17 09:40 06/21/17 09:40 06/21/17 09:40 06/20/17 06/21/17 06/22/17 05:59 05:59 05:59 Intake Total 700 1450 Output Total 960 1385 525 Balance -260 65 -525 ICD10 Worksheet Patient Problems: Problems Problem Status Onset Afib Acute Atrial fibrillation Acute Chronic Disease [facility]/Transitional Care Acute Generalized weakness Acute Influenza B Acute Pneumonia Acute
--- NOTE | 2017-06-21 11:21 | GDS ---
[f rep st] DISCHARGE SUMMARY ADMITTING DIAGNOSIS: Invasive ductal carcinoma and ductal carcinoma in situ, right breast. SECONDARY DIAGNOSES: Atrial fibrillation, hyperlipidemia, hypothyroidism, osteoporosis, restless leg s. REASON FOR ADMISSION: The patient is an 87-year-old woman who was diagnosed with right breast cancer . She underwent lumpectomy x2 with positive margins. She then elected to have mastectomy. She is a dmitted at this time for surgical intervention, pain control, and observation. HOSPITAL COURSE: She was taken to the operating room by Dr. Nayana Castellanos on 06/18/2017 for right mast ectomy. Pathology from the surgery is pending at the time of discharge. Her postop course was uncom plicated. She required supplemental oxygen, but this resolved. Her pain was well controlled with or al pain medication. She did require some assistance with ambulation. On postoperative day #3, her p ain was controlled. She was ambulating with assistance and tolerating a regular diet. She was ready for discharge home. CONDITION: She is being discharged home in stable condition with home care services including PT, OT , nursing, and RETAIL SALES ASSISTANT. DISCHARGE MEDICATIONS: She is sent home with prescriptions for Tylenol and Onyx. Instructed to res ume home medicines. Please see EMR for further detail. DISCHARGE INSTRUCTIONS AND FOLLOWUP: Home Care will check and record DAVID drainage 1-2 times per day. We will remove the drain when there is less than 20 cc out per day for 2 consecutive days. She will follow up in 10 days or sooner if her drain is ready to be removed. She may shower. Dressing to be removed on 06/24/2017. She understands to call with any worsening symptoms, questions, or concerns. /[id number]/MODL
[2017-06-21] MEDS: HYDROCODONE/APAP 5/325 TAB PO PRN (13:53)
[2017-06-21] MEDS: FLUTICASONE NASAL 120 SPRAYS/16 GM MDI EACHNARE SCH (13:55)
--- NOTE | 2017-06-21 17:08 | ASMTCMCOM ---
CM Note CM Note Notes: Dc order received. Spoke with RN & MD. Alerted Basia, at [facility]. No other needs at this time. Dc plan-[facility] RN/PT/OT/HOSPITAL INSURANCE REPRESENTATIVE Date Signed: 06/21/2017 05:07 PM Electronically Signed By:Clarissa Duarte RN
--- NOTE | 2017-06-21 17:10 | ASDISCHSUM ---
Discharge Information Plan Status:Home with Home Health Medically Cleared to Leave: Discharge Date:06/21/2017 02:00 PM D/C Disposition:Home Health Service ADT D/C Disposition:Home, Routine, Self-Care Projected Discharge Date:06/21/2017 12:00 PM Transportation at D/C:Family Discharge Delay Reason: Follow-Up Date:06/21/2017 12:00 PM Discharge Slot: Final Diagnosis: Placement Information Referral Type:*Home Health Care Services Referral ID:[id number] Provider Name:[facility] Address 1:[address] [place] [address] Address 2: City:[place] Selection Factors: State:[place] Patient Contact Information Contact Name:ZOEY Relationship:Daughter Address:[address] City:[place] Alternate Phone: State/Zip Code:[place] [address] Email: Financial Information Financial Class:Medicare Primary Plan Desc:MEDICARE INPATIENT Primary Plan Number:[id number] Secondary Plan Desc:MED[place] Secondary Plan Number:[id number] Assessment Information [facility] CM Progress Note CM Note CM Note Notes: Pt admitted for rt mastectomy. Prior to surgery, [facility] HC RN arranged by MD's office. [facility] alerted to pt's admission. DC unclear. Date Signed: 06/18/2017 03:53 PM Electronically Signed By:Vannesa Mackey LCSW [facility] CM Progress Note CM Note CM Note Notes: Met with pt and her daughter. Daughter was not comfortable with pt discharging home today but felt somewhat reassured when CM said pt would be set up with [facility] RN/PT/OT/HIGH SCHOOL COORDINATOR. Dr Castellanos felt pt was medically ready to d/c and put in the d/c order. Pt's daughter then expressed other concerns to RN and per RN, the d/c order was canceled. Anticipate pt's d/c home tomorrow. Date Signed: 06/20/2017 04:03 PM Electronically Signed By:CECILIO Ware [facility] CM Progress Note CM Note CM Note Notes: Dc order received. Spoke with RN & MD. Renny Flor at [facility]. No other needs at this time. Dc plan-[facility] RN/PT/OT/HIGH SCHOOL COORDINATOR Date Signed: 06/21/2017 05:07 PM Electronically Signed By:Clarissa Duarte RN Intervention Information Intervention Type:*IM-Signed Date of Service:06/21/2017 11:43 AM Patient Type:Inpatient Staff Member:TUNG Torres, Funmi Hours: Discipline: Severity: Comment:
== END 2017-06-21 14:00 | disposition home or self-care (01) | DRG 583 ==
LOC: OBSVTOIN 08:29 → F3E 08:29 → F1N 10:28
PROVIDERS: ADMIT Surgery; ATTEND Surgery
PROC: 0HTT0ZZ Resection of Right Breast, Open Approach (ICD-10-PCS; principal; 2017-06-18 09:45)
DX: C50.811 Malignant neoplasm of overlapping sites of right female breast (principal); I48.91 Unspecified atrial fibrillation; G25.81 Restless legs syndrome; E03.9 Hypothyroidism, unspecified; G47.33 Obstructive sleep apnea (adult) (pediatric); Z17.0 Estrogen receptor positive status [ER+]; Z87.01 Personal history of pneumonia (recurrent); Z79.01 Long term (current) use of anticoagulants; Z86.010 Personal history of colon polyps
CPT/HCPCS: 97116-GP; 97161-GP; 97165-GO; 97535-GO; G8978-GP-CJ; G8979-GP-CI; G8987-GO-CI; G8988-GO-CI; J0690; J1100; J2001; J2250; J2370; J2405; J2704; J3010

== ENCOUNTER 2017-07-02 23:49 | Emergency (ER) | payer OTHER, MEDICAID ==
--- NOTE | 2017-07-03 00:16 | EDPHY ---
H & P Stated Complaint: BREAST SURGERY 2 WEEKS AGO, FEVER AND REDNESS TO AREA Time Seen by Provider: 07/02/17 23:55 HPI/ROS: CHIEF COMPLAINT: [Right chest wall erythema with fever of 100 at home ] HISTORY OF PRESENT ILLNESS: [This is an 87-year-old female who 1st had breast cancer the left some 30 years ago. She was found to have a lump this past May , underwent lumpectomy with biopsy and was found to have cancer with indistinct margins. Thus, 2 weeks ago she proceeded to have a right mastectomy. She was seen postoperatively just 3 days ago. At that time there was discussion of more drainage from the Geronimo-Mason then was desirable and thus this was left in place. Per se, this brown is having quite a bit of pain in the area and has continued have pain medication requirements even now some 2 weeks later. The daughter who is been caring for her reports that the amount of drainage just this morning was 30 cc. She feels that her pain medication requirements of slightly gone up in the last few days. Evidently there was a fever checked at home which was as high as 100 orally. The daughter feels that the fever was probably there yesterday as she seem to be adjusting the thermostat quite a bit and keeping her room rather warm when indeed it was a pleasant spring day. She has had no shaking chills or rigors. There has been no confusion. She has chronic irritable bowel and takes Lomotil for diarrhea however in the face of the narcotics that she is discontinue the Lomotil. She did not have a stool today. There has been no diarrhea during the course of the treatments. The atrial fibrillation was a new diagnosis this past May. It was found incidentally on the preop a sepsis by anesthesia. At that time she had a consultation with Cardiology which I have reviewed. Their plan was for her to start Eliquis some 2 or 3 days postop at that department store salesperson and she has been on there ever since. She remote has a remote history of atrial fibrillation which was short duration and responded to cardioversion. ] Pain at the surgical site is limited to the right chest wall does not radiate into the chest or abdomen. There has been no cough or phlegm REVIEW OF SYSTEMS: Constitutional: No fever, no chills. Eyes: No discharge ENT: No sore throat. Cardiovascular: No chest pain, no palpitations. There has been only chest wall pain Respiratory: No cough, shortness of breath, or wheezing. Gastrointestinal: No nausea vomiting or diarrhea. No abdominal pain. Genitourinary: No hematuria or frequency. Musculoskeletal: No back pain. Skin: No rashes. Neurological: No headache. 10 point ROS otherwise negative Source: Patient Exam Limitations: No limitations - Personal History Current Tetanus Diphtheria and Acellular Pertussis (TDAP): Yes Tetanus Vaccine Date: 2012 - Medical/Surgical History Hx Asthma: Yes Hx Chronic Respiratory Disease: No Hx Diabetes: No Hx Cardiac Disease: Yes Hx Renal Disease: No Hx Cirrhosis: No Hx Alcoholism: No Hx HIV/AIDS: No Hx Splenectomy or Spleen Trauma: No Other PMH: Left lumpectomy, IBS, seasonal allergies, anxiety, OCD, heartburn, back pain, heart palpatations, a fib, hypothyroid. - Family History Significant Family History: No pertinent family hx - Social History Smoking Status: Former smoker Alcohol Use: None Drug Use: None - Physical Exam Exam: General Appearance: Alert, no distress. Afebrile. Normal phonation. No respiratory distress. [place], nontoxic. Eyes: Pupils equal and round no pallor or injection. No icterus ENT, Mouth: Mucous membranes moist Pharynx without erythema or exudate. TM Clear. Neck: No adenopathy. Supple. No JVD. Trachea in midline. Respiratory: There are no retractions, lungs are clear to auscultation. Chest wall: She is rather tender over the area of erythema that is noted to be approximately 14 x 16 cm. This is located just above the surgical scar of the mastectomy from this past 2 weeks ago. The surgical scar appears well healed, Steri-Strips are placed, and there is no signs of erythema or dehiscence. There is a Geronimo-Mason type suction device and the right chest wall which has a small amount of pinkish fluid with scant turbidity. Cardiovascular: Regular rate and rhythm. Abdomen: Soft and nontender, no masses, bowel sounds normal. Femoral pulses equal. Neurological: Ox3. No motor weakness. Sensation intact. Gait nl. Skin: Warm and dry, no rashes. Musculoskeletal: No joint swelling. Extremities: No edema. Homans sign negative. No cords. Psychiatric: Normal affect. Patient is oriented X 3. There is no agitation Constitutional: Initial Vital Signs Temperature (C) 36.9 C 07/02/17 23:56 Heart Rate 94 07/02/17 23:56 Respiratory Rate 18 07/02/17 23:56 Blood Pressure 120/67 07/02/17 23:56 O2 Sat (%) 95 07/02/17 23:56 O2 Delivery Mode Room Air Allergies/Adverse Reactions: No Known Allergies Allergy (Verified 06/17/17 14:49) Home Medications: Medication Instructions Recorded Escitalopram Oxalate [Lexapro] 20 mg PO DAILY 07/27/16 Levothyroxine [Synthroid 75 mcg 75 mcg PO DAILY06 07/27/16 (*)] Montelukast Sodium [Singulair 10 10 mg PO HS 07/27/16 mg (*)] Omeprazole [Prilosec 20 mg] 20 mg PO DAILY PRN 07/27/16 Albuterol [Proventil Inhaler HFA 2 puffs IH Q4H PRN #0 08/05/16 (*)] Diphenoxylate HCl/Atrop Sulf 1 tab PO BID 08/05/16 [Lomotil Tab (*)] Apixaban [Eliquis] 5 mg PO BID 06/17/17 Calcium Carb W/Vit D [Calcium Carb 500 mg PO DAILY 06/17/17 W/Vit D 500/200 (*)] Carvedilol [Coreg (*)] 12.5 mg PO BIDMEAL 06/17/17 Fexofenadine HCl [Patricia Allergy] 60 mg PO DAILY 06/17/17 Fluticasone Nasal [Flonase Nasal 1 sprays NASAL BID 06/17/17 [place]] Ipratropium 0.06% Nasal [Atrovent 2 sprays EACHNARE TID PRN 06/17/17 0.06% Nasal] Multivitamins [Multivitamin (*)] 1 each PO DAILY 06/17/17 Zolpidem Tartrate [Ambien 5MG (*)] 5 mg PO HS 06/17/17 rOPINIRole HCL [Requip 2mg (*)] 2 mg PO DAILY PRN 06/17/17 rOPINIRole HCL [Requip 2mg (*)] 4 mg PO HS 06/17/17 Acetaminophen [Tylenol 325mg (*)] 650 mg PO Q6 PRN tab 06/20/17 Hydrocodone/APAP 5/325 [[place] 1 tab PO Q4 PRN #20 tab 06/20/17 5/325 (*)] Cephalexin [Keflex (*)] 500 mg PO Q6H #40 cap 07/03/17 Medical Decision Making Procedures: The dressing was taken down and the suture site of the tube positioning was removed and the tube pulled. There was no resistance. Small amount of serosanguineous fluid came from out of chest wall whole however, no additional fluid came out even when trying to express from that of the chest wall. Cultures were taken of the tube as well as the drainage at the chest wall site. ED Course/Re-evaluation: An IV is established was given 500 cc saline bolus. Laboratory studies were checked as follows: Renal function normal WBC normal Hemoglobin stable for her at 10.7, when compared to prior readings in the last 5 years Lactic acid normal at 1.0 I discussed the case with the AWNING MAKER AND INSTALLER for Dr. Castellanos, findings discussed, she recommended: remove drain, and culture Rx with PO Keflex F/u Wednesday Differential Diagnosis: Diagnostic considerations include, but are not limited to, the following: Shingles, contact dermatitis, cellulitis, postop infection - Data Points Laboratory Results: Laboratory Results 07/03/17 00:25 07/03/17 00:25 07/03/17 07/03/17 07/03/17 00:25 00:25 00:25 WBC 6.79 10^3/uL 10^3/uL (3.80-9.50) RBC 3.31 10^6/uL L 10^6/uL (4.18-5.33) Hgb 10.7 g/dL L g/dL (12.6-16.3) Hct 32.3 % L % (38.0-47.0) MCV 97.6 fL fL (81.5-99.8) MCH 32.3 pg pg (27.9-34.1) MCHC 33.1 g/dL g/dL (32.4-36.7) RDW 13.0 % % (11.5-15.2) Plt Count 193 10^3/uL 10^3/uL (150-400) MPV 9.8 fL fL (8.7-11.7) Neut % (Auto) 64.3 % % (39.3-74.2) Lymph % (Auto) 17.5 % % (15.0-45.0) [place] % (Auto) 8.7 % % (4.5-13.0) Eos % (Auto) 8.8 % H % (0.6-7.6) Baso % (Auto) 0.4 % % (0.3-1.7) Nucleat RBC Rel Count 0.0 % % (0.0-0.2) Absolute Neuts (auto) 4.36 10^3/uL 10^3/uL (1.70-6.50) Absolute Lymphs (auto) 1.19 10^3/uL 10^3/uL (1.00-3.00) Absolute Monos (auto) 0.59 10^3/uL 10^3/uL (0.30-0.80) Absolute Eos (auto) 0.60 10^3/uL H 10^3/uL (0.03-0.40) Absolute Basos (auto) 0.03 10^3/uL 10^3/uL (0.02-0.10) Absolute Nucleated RBC 0.00 10^3/uL 10^3/uL (0-0.01) Immature Gran % 0.3 % % (0.0-1.1) Immature Gran # 0.02 10^3/uL 10^3/uL (0.00-0.10) VBG Lactic Acid 1.0 mmol/L mmol/L (0.7-2.1) Sodium 141 mEq/L mEq/L (135-145) Potassium 4.0 mEq/L mEq/L (3.5-5.2) Chloride 102 mEq/L mEq/L (97-110) Carbon Dioxide 28 mEq/l mEq/l (22-31) Anion Gap 11 mEq/L mEq/L (8-16) BUN 13 mg/dL mg/dL (7-23) Creatinine 0.5 mg/dL L mg/dL (0.6-1.0) Estimated GFR > 60 Glucose 116 mg/dL H mg/dL (70-100) Calcium 8.8 mg/dL mg/dL (8.5-10.4) Medications Given: Discontinued Medications Cephalexin (Keflex 500 Mg Prepack#4) 1 btl TAKEHOME EDNOW ONE PRN Reason: Protocol Stop: 07/03/17 00:59 Last Admin: 07/03/17 01:26 Dose: 1 btl Sodium Chloride (Ns) 500 mls @ 1,000 mls/hr IV EDNOW ONE PRN Reason: Protocol Stop: 07/03/17 00:46 Last Admin: 07/03/17 00:28 Dose: 500 mls Departure - Departure Disposition: Home, Routine, Self-Care Clinical Impression: Cellulitis Qualifiers: Site of cellulitis: trunk Site of cellulitis of trunk: chest wall Qualified Code(s): L03.313 - Cellulitis of chest wall Postoperative wound infection Qualifiers: Encounter type: initial encounter Qualified Code(s): T81.4XXA - Infection following a procedure, initial encounter Condition: Good Instructions: Cephalexin (By mouth), Cellulitis (ED) Additional Instructions: You should expect some drainage from the chest wall hole where the tube went in. This will lessen over the next 2-3 days, then stop. You will need to wear a bandage to collect the fluid. Take KEFLEX 4 times a day for the next 10 days. Take a PROBIOTIC pill with the antibiotic for colon health. You are to call first thing Wednesday for an appointment that day, even though you have an appointment scheduled on Wednesday. You should call or go to the ER if you: - you develop a fever equal to or greater than 101 - start feeling faint or weak or are unable to take fluids well - have diarrhea on the antibiotics. Referrals: Patient,NotPresent [Primary Care Provider] - As per Instructions Prescriptions: Cephalexin [Keflex (*)] 500 mg PO Q6H #40 cap
[2017-07-03] MEDS ORDERED: NS 500 ML IV ONE (00:17)
[2017-07-03 00:32] LABS: PLATELET COUNT 193 10^3/uL (150-400)
[2017-07-03] MEDS ORDERED: CEPHALEXIN 500MG PREPACK#4 BTL TAKEHOME ONE (00:58)
[2017-07-03 01:31] VITALS: BP 133/73
== END 2017-07-03 01:31 | disposition home or self-care (01) ==
LOC: CED 23:49
DX: L03.313 Cellulitis of chest wall (principal); T81.4XXA Infection following a procedure, initial encounter; J45.909 Unspecified asthma, uncomplicated; E86.9 Volume depletion, unspecified; Z79.01 Long term (current) use of anticoagulants; Z87.891 Personal history of nicotine dependence; Y82.8 Other medical devices associated with adverse incidents
CPT/HCPCS: 80048-PO; 83605-PO; 85025-PO

== ENCOUNTER 2017-07-08 09:38 | Inpatient (IN) | payer OTHER, MEDICAID ==
--- NOTE | 2017-07-08 13:55 | GHP ---
[f rep st] HISTORY AND PHYSICAL DATE OF ADMISSION: 07/08/2017 CHIEF COMPLAINT: Cellulitis. HISTORY OF PRESENT ILLNESS: The patient is an 87-year-old woman who first noticed a breast mass. I took her for lumpectomy, and she had positive margins that showed DCIS. I took her for re-excision o f the margins, and she had a persistent positive lateral margin. She did have some bruising after he r first surgery. Due to the positive margin, I took her to the operating room for a right mastectomy on June 18, 2017. I saw her last week, and her drain output was still over 40 cc per day. She was doing well. She then developed a fever and went into urgent care, where they removed the drain. It was cultured and grew Staph aureus which was sensitive to everything but clindamycin. She was starte d on Keflex. She had the area drained on Wednesday. Home care called me yesterday and reported that e area was more erythematous. I saw her in the office today and she is having some pain, and there i s certainly more fluid in the area. PAST MEDICAL HISTORY: Includes new onset atrial fibrillation, breast cancer, dementia, depression, h yperlipidemia, hypothyroidism, obstructive sleep apnea, restless legs syndrome. PAST SURGICAL HISTORY: Includes right mastectomy, colectomy, cholecystectomy, eye surgery, hemorrhoi dectomy, hernia repair. ALLERGIES: No known drug allergies. MEDICATIONS: Include Ambien, Coreg, Eliquis, fluticasone, ipratropium, Lomotil, Trezevant, Prilosec, rop inirole, Singulair, Synthroid, Ventolin, acetaminophen, calcium, fexofenadine. FAMILY MEDICAL HISTORY: Significant for colon cancer, diabetes, hypertension, uterine cancer. SOCIAL HISTORY: She has never used tobacco. Her daughter is very attentive. REVIEW OF SYSTEMS: Ten-point review of systems negative, except for some memory issues and weakness and pain. PHYSICAL EXAMINATION: GENERAL: Pleasant well-nourished, well-groomed woman at visit with daughter a nd granddaughter. HEENT: Normocephalic, no gross hearing deficits. Mucous membranes moist. Pupils equal and round. LUNGS: Clear to auscultation bilaterally. No increased work of breathing. CARDI AC: Irregular rate. CHEST: She has erythema on the right chest wall, and there is an obvious serom a there. The erythema does not extend beyond the marked areas. SKIN: Warm and dry. PSYCH: Mood a nd affect normal. NEURO: Grossly intact. IMPRESSION/PLAN: The patient is an 87-year-old woman with breast cellulitis that has not resolved wi th Keflex x5 days. She has a recurrent seroma. I recommend that she be admitted for IV antibiotics and to have a drain replaced. The alternatives, such as trying another oral antibiotic, were discuss ed with the family, and they elected for hospital admission. /[id number]/MODL
[2017-07-08] MEDS ORDERED: ceFAZolin 1 GM in NS 50 ML IV SCH (14:00)
--- NOTE | 2017-07-08 14:29 | ASMTCMCOM ---
CM Note CM Note Notes: Pt admitted for breast cellulitis. She will be started on IV ABX. Pt is current with [facility] for RN/PT/OT/INSPECTOR PAWNSHOP DETAIL. It is unknown if pt will need IV ABX at [place]. CM will continue to follow. Date Signed: 07/08/2017 02:28 PM Electronically Signed By:Vannesa Mackey LCSW
[2017-07-08] MEDS ORDERED: LIDOCAINE 1% 300 MG/30 ML SDV ONE (15:04)
[2017-07-08 15:20] LABS: PLATELET COUNT 236 10^3/uL (150-400)
--- NOTE | 2017-07-08 15:25 | GCON ---
[f rep st] CONSULTATION DATE OF CONSULTATION: 07/08/2017 REFERRING PHYSICIAN: Nayana Castellanos MD REASON FOR CONSULTATION: Postoperative infection following a right mastectomy. HISTORY OF PRESENT ILLNESS: 87-year-old woman who noticed a breast mass subsequently identified as breast cancer, underwent a right lumpectomy 2017. 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 She was taken back for reexcision and had persistent positive margins. Due to positive margins, she underwent a right mastectomy on June 18, 2017. Last week, her drain output was significantly high, but generally doing well. She, on 07/03/2017, developed a fever and went to Urgent Care, where they removed the drain, and culture showed MSSA. The patient was started on Keflex, but has had minimal improvement and is admitted today for further drainage of seroma and IV antibiotic therapy. Patient is generally feeling well today. She does describe right breast pain. Erythema was not noted to be changed significantly by surgeon, but there was more fluid in the area than prior exams. Her only other symptom is having 1 loose bowel movement a day. PAST MEDICAL HISTORY: Atrial fibrillation, breast cancer, dementia, depression , hyperlipidemia, hypothyroidism, obstructive sleep apnea and restless legs syndrome. PAST SURGICAL HISTORY: As per HPI. In addition, colectomy, cholecystectomy, eye surgery, hemorrhoidectomy, hernia repair. ALLERGIES: NKDA. MEDICATIONS: Ambien, Coreg, Eliquis, fluticasone improved, ipratropium, Lomotil , [place], Prilosec, ropinirole, Singulair, Synthroid, Ventolin, acetaminophen, calcium, fexofenadine. FAMILY HISTORY: Positive for diabetes, breast cancer in her sister, hypertension and uterine cancer. SOCIAL HISTORY: She lives in [place] with her daughter. She moved here 9 years ago from [place]. 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 She has no pets and no recent travel. No tobacco. REVIEW OF SYSTEMS: A complete 10-point review of systems was performed and is negative except as mentioned in the HPI. PHYSICAL EXAM: VITAL SIGNS: Blood pressure 136/71, HR 75, RR 16, saturation 95 % on room air, temperature 36.6. GENERAL: This is a pleasant, talkative woman sitting up in bed, in no acute distress. HEENT: No conjunctival hemorrhages. Oropharynx: Moist mucous membranes. NECK: Supple. No lymphadenopathy. CARDIOVASCULAR: Regular rate with a 2/6 systolic murmur. Cardiac rhythm seemed fairly regular at the time of my exam. CHEST: Clear to auscultation bilaterally. ABDOMEN: Soft, nontender. BREASTS: Right breast: Patient with obvious horizontal incision across the breast tissue with Steri-Strips in place and some erythema going along the incision line. In addition, patient had an area of erythema on the upper chest wall that had noticeable fluctuance to it, likely site of seroma. No axillary erythema or lymph nodes palpated. NEUROLOGIC: She was moving all 4 extremities equally and was conversational. Orientation was not tested. LABORATORY: From 07/03/2017, white count 6.7, hematocrit 32, platelets of 193, 64% neutrophils. Creatinine 0.5. Cultures from that date showed MSSA. The culture tip also included is the seroma drain. The tip of that was cultured. IMAGING: Pending at time of dictation. ASSESSMENT AND PLAN: This is an 87-year-old woman who underwent a right mastectomy 06/18/2017, complicated by breast cellulitis and possible infected seroma. Agree with IV cefazolin and further drainage of seroma. Duration of antibiotic therapy will be based on clinical improvement. Thank you for this consultation. We will continue to see on a daily basis. Time 70 min with greater than 50% time spent with education counseling regarding management of infection and planned treatment course. /[id number]/MODL MTDD
[2017-07-08 15:28] LABS: INR 1.21 (0.83-1.16); PROTIME(PATIENT) 15.5 SEC (12.0-15.0)
[2017-07-08] MEDS ORDERED: PANTOPRAZOLE SODIUM 40 MG TAB PO PRN (21:41)
[2017-07-08] MEDS ORDERED: ALBUTEROL 60 PUFFS/8 GM MDI IH PRN (21:41)
[2017-07-08] MEDS ORDERED: IPRATROPIUM 0.06% NASAL SPRAY EACHNARE PRN (21:41)
[2017-07-08] MEDS ORDERED: ACETAMINOPHEN 325 MG TAB PO PRN (21:41)
[2017-07-08] MEDS: APIXABAN 5 MG TAB PO SCH (22:23)
[2017-07-08] MEDS: HYDROCODONE/APAP 5/325 TAB PO PRN (22:23)
[2017-07-08] MEDS: ZOLPIDEM TARTRATE 5 MG TAB PO SCH (22:29)
[2017-07-08] MEDS: CARVEDILOL 6.25 MG TAB PO SCH (22:50)
[2017-07-08] MEDS: MONTELUKAST SODIUM 10 MG TAB PO SCH (22:51)
[2017-07-09] MEDS: LEVOTHYROXINE 75 MCG TAB PO SCH (05:29)
[2017-07-09] MEDS: CALCIUM CARB W/VIT D 500 MG TAB PO SCH (09:15)
[2017-07-09] MEDS: CETIRIZINE 10 MG TAB PO SCH (09:15)
[2017-07-09] MEDS: CARVEDILOL 6.25 MG TAB PO SCH ×2 (09:15→17:57)
[2017-07-09] MEDS: DIPHENOXYLATE/ATROPINE LOMOTIL 1 TAB PO SCH ×2 (09:15→20:28)
[2017-07-09] MEDS: ESCITALOPRAM OXALATE 10 MG TAB PO SCH (09:15)
[2017-07-09] MEDS: APIXABAN 5 MG TAB PO SCH ×2 (09:15→20:26)
[2017-07-09] MEDS: FLUTICASONE NASAL 120 SPRAYS/16 GM MDI EACHNARE SCH ×2 (09:18→20:31)
[2017-07-09] MEDS: HYDROCODONE/APAP 5/325 TAB PO PRN ×2 (09:22→20:26)
--- NOTE | 2017-07-09 09:51 | PCMIDPN ---
Assessment/Plan: 1. Right breast cellulitis after total mastectomy with infected seroma secondary to MSSA status post IR drainage with drain placement: Much better today, with improvement in pain and erythema. Continue Ancef at present dose. May need a course of IV therapy--to be determined. Patient understands she will be here through the weekend. Subjective: Patient is just delightful this morning. Very pleasant, loquacious, and without complaints. No diarrhea. Right chest much less painful. Status post IR drainage of 120 cc of pus from right breast. Objective: Ancef 1 g IV Q 8 hr day 1 Afebrile Drain output 65 cc Vital Signs Temp Pulse Resp BP Pulse Ox 36.7 C 108 H 17 149/98 H 92 07/09/17 08:59 07/09/17 09:15 07/09/17 08:59 07/09/17 09:15 07/09/17 08:59 Microbiology 07/08/17 15:30 Gram Stain - Final Breast - Aspirate Laboratory Results 07/08/17 15:10 07/08/17 15:10 07/08/17 07/09/17 07/10/17 05:59 05:59 05:59 Intake Total 1450 Output Total 65 Balance 1385 Breast fluid with Gram-positive cocci, culture pending. Previous breast culture with MSSA - Physical Exam General Appearance: alert, no apparent distress EENT: pharynx normal, No thrush Respiratory: lungs clear Cardiac/Chest: other (Right chest notable for mastectomy. Patient has some pinkish erythema without bullae that has clearly receded inside of demarcated margins on right anterior chest. There is a drain in place in the right lower anterior chest with perhaps 20 cc of serosanguineous fluid. There is not a significant amount of discomfort. There is no drainage from the mastectomy incision. No significant lymphedema. No arm cellulitis.) Abdomen: non-tender, soft ICD10 Worksheet Patient Problems: Problems Problem Status Onset Afib Acute Atrial fibrillation Acute Chronic Disease Mgmt/Transitional Care Acute Generalized weakness Acute Influenza B Acute Pneumonia Acute
--- NOTE | 2017-07-09 16:10 | ASMTCMCOM ---
CM Note CM Note Notes: Chart reviewed. Patient up in chair coloring. Live with her daughter just recently opened with [place] with [facility]. CM to follow may need IV antibiotics. Plan: TBD Date Signed: 07/09/2017 04:10 PM Electronically Signed By:Kandy Ramirez RN
--- NOTE | 2017-07-09 16:41 | PDMN ---
Medical Necessity Medical necessity: change to IP; los>2mn for R breast cellulitis s/p total mastectomy w/infected seroma r/t MSSA status; admit for drain placement and IV abx; per order and progress note 07/09/17
--- NOTE | 2017-07-09 17:59 | SOAPPROG ---
SOAP Progress Note Assessment/Plan: Assessment/Plan: 87yo F s/p R mastectomy for breast cancer. Admitted with cellulitis/infected seroma DAVID drain to suction IV antibiotics - appreciate ID Pain controlled Dispo: continue inpatient for IV antibiotics and drain management S: feeling well. less swelling and discomfort improving. still with some redness but less than admission O: sitting up in chair, comfortable, NAD No increased WOB No peripheral edema R breast swelling improved. Erythema receeding. DAVID drain with cloudy serosanguinous fluid, small amount Incision otherwise CDI Objective: Vital Signs Temp Pulse Resp BP Pulse Ox 36.6 C 76 17 138/71 H 92 07/09/17 15:46 07/09/17 17:57 07/09/17 15:46 07/09/17 17:57 07/09/17 15:46 Microbiology 07/08/17 15:30 Gram Stain - Final Breast - Aspirate Laboratory Results 07/08/17 15:10 07/08/17 15:10 07/08/17 07/09/17 07/10/17 05:59 05:59 05:59 Intake Total 1450 200 Output Total 65 25 Balance 1385 175 PT 15.5 SEC (12.0-15.0) H 07/08/17 15:10 INR 1.21 (0.83-1.16) H 07/08/17 15:10 ICD10 Worksheet Patient Problems: Problems Problem Status Onset Afib Acute Atrial fibrillation Acute Chronic Disease [facility]/Transitional Care Acute Generalized weakness Acute Influenza B Acute Pneumonia Acute
[2017-07-09] MEDS: MONTELUKAST SODIUM 10 MG TAB PO SCH (20:27)
[2017-07-09] MEDS: ZOLPIDEM TARTRATE 5 MG TAB PO SCH (20:28)
[2017-07-10] MEDS: HYDROCODONE/APAP 5/325 TAB PO PRN ×2 (04:20→21:07)
[2017-07-10] MEDS: LEVOTHYROXINE 75 MCG TAB PO SCH (05:54)
[2017-07-10] MEDS: CARVEDILOL 6.25 MG TAB PO SCH ×2 (08:25→18:15)
[2017-07-10] MEDS: ESCITALOPRAM OXALATE 10 MG TAB PO SCH (08:25)
[2017-07-10] MEDS: CETIRIZINE 10 MG TAB PO SCH (08:25)
[2017-07-10] MEDS: APIXABAN 5 MG TAB PO SCH ×2 (08:25→21:07)
[2017-07-10] MEDS: CALCIUM CARB W/VIT D 500 MG TAB PO SCH (08:25)
[2017-07-10] MEDS: DIPHENOXYLATE/ATROPINE LOMOTIL 1 TAB PO SCH ×2 (08:25→21:07)
[2017-07-10] MEDS: FLUTICASONE NASAL 120 SPRAYS/16 GM MDI EACHNARE SCH ×2 (08:27→21:08)
--- NOTE | 2017-07-10 08:33 | SOAPPROG ---
SOAP Progress Note Assessment/Plan: Assessment: s/p R mastectomy and readmitted for cellulitus Improved greatly on Ancef Awaiting discharge recs from ID Can discharge when antibiotics planned with antibiotics and DAVID drain S: Feeling well O: Minimal erythema DAVID with serosanguinous fluid Incision cdi Plan: 07/10/17 08:31 Objective: Vital Signs Temp Pulse Resp BP Pulse Ox 36.7 C 82 18 124/71 H 92 07/10/17 08:13 07/10/17 08:25 07/10/17 08:13 07/10/17 08:25 07/10/17 08:13 Microbiology 07/08/17 15:30 Gram Stain - Final Breast - Aspirate Laboratory Results 07/08/17 15:10 07/10/17 04:07 07/09/17 07/10/17 07/11/17 05:59 05:59 05:59 Intake Total 1450 575 Output Total 65 25 Balance 1385 550 PT 15.5 SEC (12.0-15.0) H 07/08/17 15:10 INR 1.21 (0.83-1.16) H 07/08/17 15:10 ICD10 Worksheet Patient Problems: Problems Problem Status Onset Afib Acute Atrial fibrillation Acute Chronic Disease Mgmt/Transitional Care Acute Generalized weakness Acute Influenza B Acute Pneumonia Acute
--- NOTE | 2017-07-10 12:33 | PCMIDPN ---
Assessment/Plan: 1. Right breast cellulitis after total mastectomy with infected seroma secondary to MSSA status post IR drainage with drain placement: Continues to improve. Drain output slowing down. Would prefer that she stay here for another day or 2 of IV therapy. Given significant clinical improvement , suspect she may be able to complete the remainder of therapy with oral antibiotics. For now, she understands the need to stay in the hospital. 07/10/17 12:31 Subjective: Continues to improve. No diarrhea on the antibiotics. Coloring her birds in her coloring book. Objective: Ancef 1 g IV q.8 hours day 2 No fevers Vital Signs Temp Pulse Resp BP Pulse Ox 36.7 C 82 18 124/71 H 92 07/10/17 08:13 07/10/17 08:25 07/10/17 08:13 07/10/17 08:25 07/10/17 08:13 Microbiology 07/08/17 15:30 Gram Stain - Final Breast - Aspirate Laboratory Results 07/08/17 15:10 07/10/17 04:07 07/09/17 07/10/17 07/11/17 05:59 05:59 05:59 Intake Total 1450 575 Output Total 65 25 Balance 1385 550 Drain fluid growing MSSA - Physical Exam General Appearance: alert, no apparent distress EENT: No thrush Cardiac/Chest: other (Right mastectomy site with much improved cellulitis, with brick red erythema that has receded significantly inside of demarcated margins. Drain is in place. No oozing from the incision.) Skin: No rash ICD10 Worksheet Patient Problems: Problems Problem Status Onset Afib Acute Atrial fibrillation Acute Chronic Disease [facility]/Transitional Care Acute Generalized weakness Acute Influenza B Acute Pneumonia Acute
[2017-07-10] MEDS: MONTELUKAST SODIUM 10 MG TAB PO SCH (21:07)
[2017-07-10] MEDS: ZOLPIDEM TARTRATE 5 MG TAB PO SCH (21:07)
[2017-07-11] MEDS: LEVOTHYROXINE 75 MCG TAB PO SCH (05:49)
[2017-07-11] MEDS: HYDROCODONE/APAP 5/325 TAB PO PRN ×2 (05:49→18:19)
[2017-07-11] MEDS: ESCITALOPRAM OXALATE 10 MG TAB PO SCH (08:37)
[2017-07-11] MEDS: CARVEDILOL 6.25 MG TAB PO SCH ×2 (08:37→18:19)
[2017-07-11] MEDS: DIPHENOXYLATE/ATROPINE LOMOTIL 1 TAB PO SCH ×2 (08:37→20:54)
[2017-07-11] MEDS: APIXABAN 5 MG TAB PO SCH ×2 (08:37→20:54)
[2017-07-11] MEDS: CALCIUM CARB W/VIT D 500 MG TAB PO SCH (08:37)
[2017-07-11] MEDS: CETIRIZINE 10 MG TAB PO SCH (08:37)
[2017-07-11] MEDS: FLUTICASONE NASAL 120 SPRAYS/16 GM MDI EACHNARE SCH ×2 (08:44→20:55)
--- NOTE | 2017-07-11 13:16 | PCMIDPN ---
Assessment/Plan: 1. Right breast cellulitis after total mastectomy with infected seroma secondary to MSSA status post IR drainage with drain placement: The patient, her daughter, and I came up with a plan. She is better, but I am still loath to send her out on orals today and feels she needs another day. She is agreeable to this. Her daughter states she cannot pick her up until later in the afternoon, around 5:00 p.m.. I told her that that is fine, and she can continue her IV antibiotics up until that time. I think that she will be ready for a transition to oral therapy tomorrow afternoon. Perhaps the drain can even be removed tomorrow, but this will depend on Dr. Castellanos. Subjective: In very good spirits. No diarrhea. Objective: Vital Signs Ancef 1 g IV q.8 hours day 3 Afebrile Drain has only put out 20 cc in the past 24 hr Temp Pulse Resp BP Pulse Ox 36.6 C 83 16 103/55 L 90 L 07/11/17 08:47 07/11/17 08:47 07/11/17 08:47 07/11/17 08:47 07/11/17 08:47 Microbiology 07/08/17 15:30 Gram Stain - Final Breast - Aspirate Body Fluid Culture - Final Staphylococcus Aureus Laboratory Results 07/08/17 15:10 07/10/17 04:07 07/10/17 07/11/17 07/12/17 05:59 05:59 05:59 Intake Total 575 1502 150 Output Total 25 20 Balance 550 1482 150 Drain fluid MSSA - Physical Exam General Appearance: alert, no apparent distress EENT: pharynx normal, No thrush Cardiac/Chest: other (Right breast area with dusky erythema that looks better compared with today, although the area is still fairly warm. Swelling is minimal. No discharge from the incision. Drain in place with empty bulb. No significant tenderness.) ICD10 Worksheet Patient Problems: Problems Problem Status Onset Afib Acute Atrial fibrillation Acute Chronic Disease Mgmt/Transitional Care Acute Generalized weakness Acute Influenza B Acute Pneumonia Acute
--- NOTE | 2017-07-11 13:28 | ASMTCMCOM ---
CM Note CM Note Notes: Per ID, patient will stay tonight and continue with IV antibiotics. She should be able to transition to orals tomorrow evening, when she plans to go home with her daughter. [facility] will see her for home care; I have notified them of her likely d/c tomorrow evening. Date Signed: 07/11/2017 01:28 PM Electronically Signed By:Priscilla Velazquez RN
--- NOTE | 2017-07-11 16:45 | SOAPPROG ---
SOAP Progress Note Assessment/Plan: Assessment: 87-YEAR-OLD FEMALE STATUS POST MASTECTOMY WITH CELLULITIS ERYTHEMA RESOLVING AND TENDERNESS IMPROVED CHEST CLEAR COR REGULAR RHYTHM AFEBRILE Plan: HOME IN THE A.M. ON ORAL ANTIBIOTICS 07/11/17 16:44 Objective: Vital Signs Temp Pulse Resp BP Pulse Ox 36.6 C 83 16 103/55 L 90 L 07/11/17 08:47 07/11/17 08:47 07/11/17 08:47 07/11/17 08:47 07/11/17 08:47 Microbiology 07/08/17 15:30 Gram Stain - Final Breast - Aspirate Body Fluid Culture - Final Staphylococcus Aureus Laboratory Results 07/08/17 15:10 07/10/17 04:07 07/10/17 07/11/17 07/12/17 05:59 05:59 05:59 Intake Total 575 1502 150 Output Total 25 20 15 Balance 550 1482 135 PT 15.5 SEC (12.0-15.0) H 07/08/17 15:10 INR 1.21 (0.83-1.16) H 07/08/17 15:10 ICD10 Worksheet Patient Problems: Problems Problem Status Onset Afib Acute Atrial fibrillation Acute Chronic Disease Mgmt/Transitional Care Acute Generalized weakness Acute Influenza B Acute Pneumonia Acute
[2017-07-11] MEDS: ZOLPIDEM TARTRATE 5 MG TAB PO SCH (20:55)
[2017-07-11] MEDS: MONTELUKAST SODIUM 10 MG TAB PO SCH (20:55)
[2017-07-12] MEDS: LEVOTHYROXINE 75 MCG TAB PO SCH (05:42)
[2017-07-12] MEDS: CALCIUM CARB W/VIT D 500 MG TAB PO SCH (08:01)
[2017-07-12] MEDS: CARVEDILOL 6.25 MG TAB PO SCH ×2 (08:01→16:56)
[2017-07-12] MEDS: DIPHENOXYLATE/ATROPINE LOMOTIL 1 TAB PO SCH (08:01)
[2017-07-12] MEDS: APIXABAN 5 MG TAB PO SCH (08:01)
[2017-07-12] MEDS: ESCITALOPRAM OXALATE 10 MG TAB PO SCH (08:01)
[2017-07-12] MEDS: CETIRIZINE 10 MG TAB PO SCH (08:01)
[2017-07-12] MEDS: FLUTICASONE NASAL 120 SPRAYS/16 GM MDI EACHNARE SCH (08:02)
--- NOTE | 2017-07-12 09:40 | PCMIDPN ---
Assessment/Plan: Assessment/Plan: * Right breast postoperative infection/seroma infection due to MSSA status post percutaneous drainage: Cellulitis improved with small residual area of erythema superomedially. Drain output decreasing. Think can transition to oral cephalexin today to complete 6 more days of therapy. Will arrange for follow-up later this week in our office to ensure continues to improve with oral antibiotic therapy post drainage. 07/12/17 09:38 07/12/17 09:50 Subjective: Patient notes she is feeling better. Had diarrhea yesterday but this has resolved as of this a.m.. Objective: Vital Signs Temp Pulse Resp BP Pulse Ox 36.6 C 78 15 117/69 94 07/12/17 07:53 07/12/17 07:53 07/12/17 07:53 07/12/17 07:53 07/12/17 07:53 Laboratory Results 07/08/17 15:10 07/10/17 04:07 07/11/17 07/12/17 07/13/17 05:59 05:59 05:59 Intake Total 1502 400 Output Total 20 15 Balance 1482 385 Cefazolin # 4 Seroma cultures with growth of MSSA - Physical Exam General Appearance: alert, no apparent distress EENT: No scleral icterus, No thrush Respiratory: lungs clear, No respiratory distress Cardiac/Chest: other (Right breast with small area of erythema in superomedial location with mild tenderness; DAVID with slightly cloudy serous output) Abdomen: non-tender, No distended ICD10 Worksheet Patient Problems: Problems Problem Status Onset Afib Acute Atrial fibrillation Acute Chronic Disease [facility]/Transitional Care Acute Generalized weakness Acute Influenza B Acute Pneumonia Acute
[2017-07-12] MEDS: HYDROCODONE/APAP 5/325 TAB PO PRN ×2 (10:26→16:56)
[2017-07-12] MEDS: CEPHALEXIN 500 MG CAP PO SCH ×2 (11:44→16:56)
--- NOTE | 2017-07-12 13:42 | ASMTCMCOM ---
CM Note CM Note Notes: Chart reviewed. Per Infectious Disease, may change to oral antibiotics upon discharge. Patient lives with her daughter, has [facility] and is followed by [facility] for breast infection. Oncology nurse navigator aware of support services for patient. CM to follow. Plan: Likely home today on Oral antibiotics with [facility] Date Signed: 07/12/2017 01:41 PM Electronically Signed By:Kandy Ramirez RN
--- NOTE | 2017-07-12 15:42 | SOAPPROG ---
SOAP Progress Note Assessment/Plan: Assessment/Plan: 87yo F s/p R mastectomy for breast cancer. Admitted with cellulitis/infected seroma DAVID drain to suction - will keep until <20cc out x 2 consecutive days IV antibiotics - transition to PO today Pain controlled Dispo: DC home today with PO antibiotics and drain. Will have home care. FU as needed. S: feeling well. less swelling. redness improved. overall ready to go home! O: sitting up in chair, comfortable, NAD No increased WOB No peripheral edema R breast swelling improved. Erythema receeding. DAVID drain with small amt serosanguinous fluid, no purulent or cloudy today Incision otherwise CDI Objective: Vital Signs Temp Pulse Resp BP Pulse Ox 36.6 C 84 14 120/69 94 07/12/17 15:38 07/12/17 15:38 07/12/17 15:38 07/12/17 15:38 07/12/17 15:38 Laboratory Results 07/08/17 15:10 07/10/17 04:07 07/11/17 07/12/17 07/13/17 05:59 05:59 05:59 Intake Total 1502 400 Output Total 20 15 Balance 1482 385 PT 15.5 SEC (12.0-15.0) H 07/08/17 15:10 INR 1.21 (0.83-1.16) H 07/08/17 15:10 ICD10 Worksheet Patient Problems: Problems Problem Status Onset Afib Acute Atrial fibrillation Acute Chronic Disease [facility]/Transitional Care Acute Generalized weakness Acute Influenza B Acute Pneumonia Acute
--- NOTE | 2017-07-12 15:43 | PDIAF ---
- Diagnosis Diagnosis: breast ca Code Status: Full Code - Medication Management Discharge Medications: Medications to Continue on Transfer RX: Escitalopram Oxalate [Lexapro] 20 mg PO DAILY 07/27/16 [Last Taken 07/08/17] RX: Levothyroxine [Synthroid 75 mcg (*)] 75 mcg PO DAILY06 07/27/16 [Last Taken 07/08/17] RX: Montelukast Sodium [Singulair 10 mg (*)] 10 mg PO HS 07/27/16 [Last Taken ] RX: Omeprazole [Prilosec 20 mg] 20 mg PO DAILY PRN 07/27/16 [Last Taken 06/18/17 ] RX: Albuterol [Proventil Inhaler HFA (*)] 2 puffs IH Q4H PRN #0 08/05/16 [Last Taken 05/20/17] RX: Diphenoxylate HCl/Atrop Sulf [Lomotil Tab (*)] 1 tab PO BID 08/05/16 [Last Taken 07/08/17] RX: Apixaban [Eliquis] 5 mg PO BID 06/17/17 [Last Taken 07/08/17] RX: Calcium Carb W/Vit D [Calcium Carb W/Vit D 500/200 (*)] 500 mg PO DAILY 07/30 [Last Taken 07/08/17] RX: Carvedilol [Coreg (*)] 12.5 mg PO BIDMEAL 06/17/17 [Last Taken 07/08/17] RX: Fexofenadine HCl [Patricia Allergy] 60 mg PO DAILY 06/17/17 [Last Taken 07/08] RX: Fluticasone Nasal [Flonase Nasal [place]] 1 sprays NASAL BID 06/17/17 [Last Taken 07/07/17] RX: Ipratropium 0.06% Nasal [Atrovent 0.06% Nasal] 2 sprays [place] TID PRN 07/30 [Last Taken Unknown] RX: Multivitamins [Multivitamin (*)] 1 each PO DAILY 06/17/17 [Last Taken ] RX: Zolpidem Tartrate [Ambien 5MG (*)] 5 mg PO HS 06/17/17 [Last Taken 07/07/17] RX: rOPINIRole HCL [Requip 2mg (*)] 2 mg PO DAILY PRN 06/17/17 [Last Taken Unknown] RX: rOPINIRole HCL [Requip 2mg (*)] 4 mg PO HS 06/17/17 [Last Taken 07/07/17] RX: Acetaminophen [Tylenol 325mg (*)] 650 mg PO Q6 PRN tab 06/20/17 [Last Taken Unknown] RX: Cephalexin [Keflex (*)] 500 mg PO Q6HRS 6 Days #24 cap 07/12/17 [Last Taken Unknown] RX: Hydrocodone/APAP 5/325 [[place] 5/325 (*)] 1 tab PO Q4HRS PRN #20 tab [Last Taken Unknown] Discharge Medications: Refer to the Discharge Home Medication list for PRN reason. - Orders Services needed: Home Care, Registered Nurse, Certified Hot Tar Roofer Helper Home Care Face to Face: I certify that this patient was under my care and that I had the required [id number] encounter meeting the encounter requirements on the discharge day. My findings support the fact that the patient is homebound as defined in Home Care Face to Face Continued: CMS Chapter 7 Medicare Benefits Manual 30.1.1 , The condition of the patient is such that there exists a normal inability to leave home and consequently, leaving home would require a considerable and taxing effort. Isolation Type: None Diet Recommendation: no restrictions on diet Diet Texture: Regular Texture Diet Wound Care Instructions: DAVID drain empty and record output daily. We will remove drain when <20cc out x 2 consecutive days. Additional Instructions: Continue oral antibiotics x 6 days. Follow-up with ID as scheduled. Keep DAVID drain - empty and record daily. We will remove drain when <20cc out per day x 2 consecutive days. Follow-up with Dr. Castellanos/Chasity RIBERA on Sunday 07/16 - call to make appointment. Call our office with worsening symptoms, questions or concerns. - Follow Up Care Current Providers and Referrals: Nayana Lew MD [Primary Care Provider] - Nayana Castellanos MD [Medical Doctor] - 07/16/17 (sooner if DAVID output is less than 20 cc/day for 2 days in a row) Sally Navarro MD [Medical Doctor] - 07/15/17 1:00 pm
--- NOTE | 2017-07-12 16:45 | ASMTLACE ---
LACE Length of stay for Answers: 4-6 days current admission Acuity / Level of Answers: Yes Care: Did the patient have an inpatient admission? Comorbidities - select Answers: Any tumor (including all that apply lymphoma or leukemia) # of Emergency department Answers: 1-2 visits in the last 6 months Score: 10 Date Signed: 07/12/2017 04:44 PM Electronically Signed By:Kandy Ramirez RN
[2017-07-12 16:57] VITALS: BP 106/56
--- NOTE | 2017-07-12 16:57 | GDS ---
[f rep st] DISCHARGE SUMMARY ADMITTING DIAGNOSIS: Right breast infected seroma. HISTORY OF PRESENT ILLNESS: The patient is a pleasant 87-year-old woman, who developed a right breas t DCIS. She underwent lumpectomy x2 with positive margins. She ultimately underwent right mastectom y on June 18, 2017. She developed erythema of her right chest wall and was started on oral antibioti cs. However, the erythema continued to worsen and she developed swelling and discomfort. She was ad mitted for drain placement, IV antibiotics and observation. HOSPITAL COURSE: She was started on IV Ancef. She was seen by Infectious Disease. She had an ultra sound-guided drain placed by Radiology. Cultures revealed sensitive MSSA. Through her hospital stay , we watched the erythema decrease. Her swelling significantly decreased after drain placement, and her pain was well controlled with oral pain medication. On hospital day #4, she was ready for discha rge. DISCHARGE CONDITION: Home in stable condition with home health care. The pain is well controlled, t olerating regular diet, ambulating independently. DISCHARGE MEDICATIONS: Sent home with prescription for Keflex x6 days as well as [place]. Instructed to resume home medicines. Please see EMR for further detail. DISCHARGE INSTRUCTIONS AND FOLLOWUP: She will continue to empty and record DAVID drain output daily. W e will remove the drain when less than 20 cc out x2 consecutive days. She will have home care to ass ist with this. She may shower without restriction. She will follow up with Infectious Disease on at 1:00 p.m. She will follow up with Dr. Castellanos or Chasity Phillips PAC later in the week for d rain removal. She understands to call with any worsening symptoms, questions or concerns. /[id number]/MODL
--- NOTE | 2017-07-12 17:06 | ASMTCMCOM ---
CM Note CM Note Notes: Patient medically cleared for discharge. [facility] notified. Daughter to pick up attendant after dinner. She's aware of new medications. CM available should other needs arise, Plan: Home with [facility] Date Signed: 07/12/2017 05:06 PM Electronically Signed By:Kandy Ramirez RN
--- NOTE | 2017-07-14 14:31 | ASDISCHSUM ---
Discharge Information Plan Status:Home with Home Health Medically Cleared to Leave: Discharge Date:07/12/2017 05:50 PM CM D/C Disposition:Home Health Service ADT D/C Disposition:Home, Routine, Self-Care Projected Discharge Date:07/12/2017 11:00 AM Transportation at D/C:Self Discharge Delay Reason: Follow-Up Date:07/12/2017 11:00 AM Discharge Slot: Final Diagnosis: Placement Information Referral Type:*Home Health Care Services Referral ID:[id number] Provider Name:[facility] Address 1:[address] [place] [address] Address 2: City:[place] Selection Factors: State:[place] Patient Contact Information Contact Name:ZOEY Relationship:Daughter Address:[address] City:[place] Alternate Phone: State/Zip Code:[place] [address] Email: Financial Information Financial Class:Medicare Primary Plan Desc:MEDICARE INPATIENT Primary Plan Number:[id number] Secondary Plan Desc:[place] Secondary Plan Number:[id number] Assessment Information LACE LACE Length of stay for Answers: 4-6 days current admission Acuity / Level of Answers: Yes Care: Did the patient have an inpatient admission? Comorbidities - select Answers: Any tumor (including all that apply lymphoma or leukemia) # of Emergency department Answers: 1-2 visits in the last 6 months Score: 10 Date Signed: 07/12/2017 04:44 PM Electronically Signed By:Kandy Ramirez RN [facility] CM Progress Note CM Note CM Note Notes: Pt admitted for breast cellulitis. She will be started on IV ABX. 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 It is unknown if pt will need IV ABX at [place]. CM will continue to follow. Date Signed: 07/08/2017 02:28 PM Electronically Signed By:Vannesa Mackey LCSW [facility] CM Progress Note CM Note CM Note Notes: Chart reviewed. Patient up in chair coloring. Live with her daughter just recently opened with [facility] with [facility]. CM to follow may need IV antibiotics. Plan: TBD Date Signed: 07/09/2017 04:10 PM Electronically Signed By:Kandy Ramirez RN [facility] CM Progress Note CM Note CM Note Notes: Per ID, patient will stay tonight and continue with IV antibiotics. She should be able to transition to orals tomorrow evening, when she plans to go home with her daughter. [facility] will see her for home care; I have notified them of her likely d/c tomorrow evening. Date Signed: 07/11/2017 01:28 PM Electronically Signed By:Priscilla Velazquez RN [facility] CM Progress Note CM Note CM Note Notes: Chart reviewed. Per Infectious Disease, may change to oral antibiotics upon discharge. Patient lives with her daughter, has [facility] and is followed by [facility] for breast infection. Oncology nurse navigator aware of support services for patient. CM to follow. Plan: Likely home today on Oral antibiotics with [facility] Date Signed: 07/12/2017 01:41 PM Electronically Signed By:Kandy Ramirez RN [facility] CM Progress Note CM Note CM Note Notes: Patient medically cleared for discharge. [facility] notified. Daughter to filler picker after dinner. She's aware of new medications. CM available should other needs arise, Plan: Home with [facility] Date Signed: 07/12/2017 05:06 PM Electronically Signed By:Kandy Ramirez RN Intervention Information Intervention Type:*CYR-Signed Date of Service:07/09/2017 12:22 PM Patient Type:Observation Staff Member:Teri Dejesus Hours: Discipline: Severity: Comment: Intervention Type:*IM-Signed Date of Service:07/12/2017 04:19 PM Patient Type:Inpatient Staff Member:Teri Dejesus Hours: Discipline: Severity: Comment:
== END 2017-07-12 17:50 | disposition home health service (06) | DRG 863 ==
LOC: OBSVTOIN 12:24 → F1N 12:24 → INTOOBSV 12:24
PROVIDERS: ADMIT Surgery; ATTEND Surgery
PROC: 0H9T30Z Drainage of Right Breast with Drainage Device, Percutaneous Approach (ICD-10-PCS; principal; 2017-07-08)
DX: T81.4XXA Infection following a procedure, initial encounter (principal); L76.34 Postprocedural seroma of skin and subcutaneous tissue following other procedure; N61.0 Mastitis without abscess; B95.61 Methicillin susceptible Staphylococcus aureus infection as the cause of diseases classified elsewhere; C50.911 Malignant neoplasm of unspecified site of right female breast; I48.91 Unspecified atrial fibrillation; F03.90 Unspecified dementia, unspecified severity, without behavioral disturbance, psychotic disturbance, mood disturbance, and anxiety; E03.9 Hypothyroidism, unspecified; G47.33 Obstructive sleep apnea (adult) (pediatric); E78.5 Hyperlipidemia, unspecified; G25.81 Restless legs syndrome
CPT/HCPCS: 97116-GP; 97161-GP; 97166-GO; 97535-GO; G0378; G0379; G8978-GP-CJ; G8979-GP-CI; G8987-GO-CI; G8988-GO-CI; J0690

== ENCOUNTER → 2018-03-11 | Outpatient (CLI) | payer OTHER, MEDICAID | LOC: CIMAGING 14:46 | PROVIDERS: ATTEND Family Medicine | DX: M54.16 Radiculopathy, lumbar region (principal); Z85.3 Personal history of malignant neoplasm of breast; Z90.10 Acquired absence of unspecified breast and nipple | CPT/HCPCS: 72100-PO ==

== ENCOUNTER → 2018-05-20 | Outpatient (CLI) | payer OTHER, MEDICAID | LOC: CIMAGING 11:40 | PROVIDERS: ATTEND Internal Medicine | DX: J98.11 Atelectasis (principal); R91.8 Other nonspecific abnormal finding of lung field; I51.7 Cardiomegaly | CPT/HCPCS: 71046-PO ==

== ENCOUNTER 2018-05-22 12:47 | Inpatient (IN) | payer OTHER, MEDICAID ==
--- NOTE | 2018-05-22 13:25 | EDPHY ---
H & P Stated Complaint: SOB, dizzy, productive cough x 5 days Time Seen by Provider: 05/22/18 12:56 HPI/ROS: Chief Complaint: Cough, shortness of breath, malaise HPI: 88-year-old woman with a history of atrial fibrillation, on Eliquis, breast cancer status post mastectomy last June. Patient has been having increasing malaise cough and shortness of breath for the last 5 days. She was seen by primary care on Wednesday and had a chest x-ray she which showed bibasilar atelectasis and a trace right-sided effusion. She has been having increasing shortness of breath over the last 24 hr. Yesterday was very fatigued and slept most today. This morning daughter checked in noted that she had oxygen saturations in the low 80s. She was exposed to influenza in her granddaughter and great grandson last week. She did have a flu vaccination this year. She is also complaining of increasing urination having been out several times overnight. No chest pain. No nausea or vomiting. No abdominal pain. Some subjective chills at home. ROS: ROS: 10 systems were reviewed and were negative except those elements noted in the HPI. Social History: No smoking, no alcohol, no recreational drug use Family History: non-contributory Physical Exam: Patient hypoxemic and tachypneic with respiratory rate of 22, oxygen saturations 84% on room air Gen: Awake, Alert, No Distress HEENT: Nose: no rhinorrhea Eyes: PERRLA, EOMI Mouth: Moist mucosa Neck: Supple, no JVD Chest: nontender, decreased breath sounds at the bases with fine crackles bilaterally Heart: S1, S2 normal, tachycardic, irregularly irregular Abd: Soft, non-tender, no guarding Back: no CVA tenderness, no midline tenderness Ext: no edema, non-tender Skin: no rash Neuro: CN II-XII intact, Sensation grossly intact, Strength 5/5 in bilateral upper and lower extremities - Personal History Current Tetanus Diphtheria and Acellular Pertussis (TDAP): Yes Tetanus Vaccine Date: within 10 years - Medical/Surgical History Hx Asthma: Yes Hx Chronic Respiratory Disease: No Hx Diabetes: No Hx Cardiac Disease: Yes Hx Renal Disease: No Hx Cirrhosis: No Hx Alcoholism: No Hx HIV/AIDS: No Hx Splenectomy or Spleen Trauma: No Other PMH: Left lumpectomy, L masectomy 2018, IBS, seasonal allergies, anxiety, OCD, heartburn, back pain, heart palpatations, a fib, hypothyroid, restless leg - Social History Smoking Status: Former smoker Constitutional: Initial Vital Signs Temperature (C) 37.7 C 05/22/18 12:55 Heart Rate 108 H 05/22/18 12:55 Respiratory Rate 22 H 05/22/18 12:55 Blood Pressure 161/97 H 05/22/18 12:55 O2 Sat (%) 84 L 05/22/18 12:55 O2 Delivery Mode Nasal Cannula O2 (L/minute) 2 Allergies/Adverse Reactions: No Known Allergies Allergy (Verified 05/22/18 13:05) Home Medications: Medication Instructions Recorded Acetaminophen 05/22/18 Ambien 05/22/18 Calcium 500 mg Chewable Tablet 05/22/18 Coreg 05/22/18 Eliquis 05/22/18 Fexofenadine HCl 05/22/18 Fluticasone Nasal 05/22/18 Ipratropium [place] 05/22/18 Lexapro 05/22/18 Lomotil Tab (*) 05/22/18 Multivitamin 05/22/18 Prilosec 05/22/18 Ropinirole ER 05/22/18 Seroquel 05/22/18 Singulair 05/22/18 Synthroid 05/22/18 Ultram 05/22/18 Ventolin Hfa 05/22/18 Medical Decision Making ED Course/Re-evaluation: 88-year-old woman with shortness of breath respiratory symptoms worsening for the last 5 days. Recent chest x-ray 2 days ago showed bibasilar atelectasis and small right effusion which is new. Hypoxemic at home and here with some tachypnea. Will obtain blood tests, repeat chest x-ray, influenza, urinalysis and reassess. Given her hypoxemia plan will be for admission. Check stat x-ray consistent with early pneumonia. Patient is febrile. Given Tylenol here. Lactate is below 2. I have ordered ceftriaxone and azithromycin. Discussed with Dr. Morton, hospitalist. Will accept in transfer to [facility]. - Data Points Laboratory Results: 05/22/18 05/22/18 13:27 13:24 POC Sodium 145 mEq/L mEq/L (135-145) POC Potassium 3.7 mEq/L mEq/L (3.3-5.0) POC Chloride 103.0 mEq/L mEq/L (97-110) POC Total CO2 29 mEq/L mEq/L (22-31) POC BUN 9 mg/dL mg/dL (7-23) POC Creatinine 0.5 mg/dL L mg/dL (0.6-1.0) POC Glucose 115 mg/dL H mg/dL (70-100) POC Lactic Acid Hardik 1.0 mmol/L mmol/L (0.7-2.1) POC Calcium 9.3 mg/dL mg/dL (8.5-10.4) Medications Given: Discontinued Medications Acetaminophen (Tylenol) 1,000 mg PO EDNOW ONE Stop: 05/22/18 14:09 Last Admin: 05/22/18 14:11 Dose: 1,000 mg Point of Care Test Results: CBC CBC Collection Date 05/22/18 CBC Collection Time 13:23 WBC 5.76 RBC 3.68 HGB 10.4 HCT 34.4 PLT 188 Neut # 4.66 Neut 80.9 LYMPH # 0.44 LYMPH 7.6 MCV 93.5 Chemistry 05/22/18 13:27 POC Sodium 145 mEq/L mEq/L (135-145) POC Potassium 3.7 mEq/L mEq/L (3.3-5.0) POC Chloride 103.0 mEq/L mEq/L (97-110) POC Total CO2 29 mEq/L mEq/L (22-31) POC BUN 9 mg/dL mg/dL (7-23) POC Creatinine 0.5 mg/dL L mg/dL (0.6-1.0) POC Glucose 115 mg/dL H mg/dL (70-100) POC Calcium 9.3 mg/dL mg/dL (8.5-10.4) Blood Gas/Lactic Acid-Venous 05/22/18 13:24 POC Lactic Acid Hardik 1.0 mmol/L mmol/L (0.7-2.1) Influenza PCR Flu Nasal Swab Collection Date 05/22/18 Flu Nasal Swab Collection Time 13:15 Influenza A Result Not Detected Influenza B Result Not Detected Urine Dip Collection Date 05/22/18 Collection Time 13:44 Specific [place] (1.002-1.030) 1.020 PH (5.0-7.5) 7.5 Leukocytes (Negative) Negative Nitrites (Negative) Negative Protein (Negative) Negative Glucose (Negative) Negative Ketones (Negative) Negative Urobilnogen (0.2-1.0 EU) 0.2 Bilirubin (Negative) Negative Blood (Negative) Negative Departure - Departure Disposition: [facility] Inpatient Acute Clinical Impression: Pneumonia Condition: Fair Referrals: Nayana Lew MD [Primary Care Provider] - As per Instructions
[2018-05-22] MEDS ORDERED: ACETAMINOPHEN 500 MG TAB PO ONE (14:08)
[2018-05-22] MEDS ORDERED: AZITHROMYCIN IV 500 MG in NS 250 ML IV ONE (14:29)
[2018-05-22 15:40] LABS: INR 1.55 (0.83-1.16); PROTIME(PATIENT) 17.9 SEC (12.0-15.0)
[2018-05-22] MEDS ORDERED: ONDANSETRON 4 MG/2 ML VIAL IVP PRN (16:41)
[2018-05-22] MEDS ORDERED: NS 1,000 ML IV SCH (16:45)
--- NOTE | 2018-05-22 17:16 | GHP ---
[f rep st] HISTORY AND PHYSICAL DATE OF ADMISSION: 05/22/2018 CHIEF COMPLAINT: Shortness of breath. HISTORY: Delilah is an 88-year-old female who woke up at 6 o'clock this morning feeling very sick. She was short of breath and had a new cough. This is productive of yellow sputum. She has had a fev er. She is very fatigued, very dizzy, very weak, had trouble ambulating. Daughter must have a home oxygen monitoring device because she checked her O2 saturation at home and found it to be in the low 80s, so they came to the emergency room. She felt mostly okay yesterday except for a couple woozy sp ells throughout the day. She has a couple grandchildren who have recently been sick. She did get a flu shot this year. PAST MEDICAL HISTORY: 1. Breast cancer, status post mastectomy. 2. Atrial fibrillation. 3. Restless legs syndrome. PAST SURGICAL HISTORY: 1. 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 2. Cholecystectomy. MEDICATIONS: Please see computerized record for full detailed list. ALLERGIES: No known drug allergies. SOCIAL HISTORY: Remote smoking. No alcohol. She lives with her daughter. REVIEW OF SYSTEMS: Complete review of systems obtained. Review of systems negative regarding consti tutional, HEENT, GI, pulmonary, vascular, , hematology, skin, muscle, endocrine, psych: , except fo r positives as in HPI. FAMILY HISTORY: Reviewed, noncontributory to presenting complaint. PHYSICAL EXAMINATION: GENERAL: Well-developed, well-nourished female, no acute distress. VITAL SIG NS: Temperature is 38.8, pulse 104, blood pressure 105/52, saturating 97% on 2 L. EYES: Normal co njunctivae. Pupils equal, round, reactive to light. ENT: Normal ears, nose. Hearing intact. Nayana l teeth. Oropharynx moist. NECK: Trachea midline. No thyromegaly. CHEST: Normal effort. Lungs are shows bilaterally. CARDIOVASCULAR: Regular rhythm. No murmur. No extremity edema. ABDOMEN: Soft, nontender. No hepatosplenomegaly. SKIN: Warm, dry, intact without rash. MUSCULOSKELETAL: N o cyanosis or clubbing. Strength 5/5 upper and lower extremities. NEURO: Cranial nerves intact. N ormal sensation light touch. PSYCH: Alert, oriented x3. Normal affect. Normal judgment. Normal m tai. LABORATORY DATA: White count 13.0, hematocrit 34.4, platelets 188. Sodium 145, potassium 3.7, chlor chuck 103, bicarb 29, BUN 9, creatinine 0.5, glucose 115. Chest x-ray viewed by me. My personal interpretation is right lower lobe pneumonia. This case was p ersonally discussed with Dr. Marshall, emergency room provider, regarding ER course. ASSESSMENT/PLAN: 1. Pneumonia with sepsis. Sepsis as evidenced by leukocytosis, fever and tachycardia, as well as magdy carpenter clinically developing new inability to ambulate due to severe dizziness and wooziness. Will co ntinue IV ceftriaxone and IV azithromycin. 2. Atrial fibrillation. I believe she is on Eliquis and Coreg but med rec is still pending. We sarah l watch her on telemetry due to her complaint of the dizziness. 3. Breast cancer status post mastectomy June 2017. Her cancer status is otherwise unclear at this time. CODE STATUS: Full per patient request. ADMISSION STATUS: Will admit to observation. Reevaluate tomorrow regarding ongoing need for hospita lization. DVT PROPHYLAXIS: She is low risk given her chronic anticoagulation with Eliquis. /[id number]/MODL
[2018-05-22] MEDS: CARVEDILOL 6.25 MG TAB PO SCH (21:02)
[2018-05-22] MEDS: ZOLPIDEM TARTRATE 5 MG TAB PO SCH (21:06)
[2018-05-22] MEDS: QUEtiapine FUMARATE 50 MG TAB PO SCH (21:06)
[2018-05-22] MEDS: APIXABAN 2.5 MG TAB PO SCH (21:06)
[2018-05-22] MEDS: MONTELUKAST SODIUM 10 MG TAB PO SCH (21:06)
[2018-05-22] MEDS: OSELTAMIVIR 6 MG/ML UDSYR PO SCH (22:54)
[2018-05-23 04:19] LABS: PLATELET COUNT 150 10^3/uL (150-400)
[2018-05-23] MEDS: LEVOTHYROXINE 75 MCG TAB PO SCH (06:36)
[2018-05-23] MEDS: CARVEDILOL 6.25 MG TAB PO SCH ×2 (09:34→20:43)
[2018-05-23] MEDS: CETIRIZINE 10 MG TAB PO SCH (09:34)
[2018-05-23] MEDS: APIXABAN 2.5 MG TAB PO SCH ×2 (09:34→20:44)
[2018-05-23] MEDS: PANTOPRAZOLE SODIUM 40 MG TAB PO SCH (09:35)
[2018-05-23] MEDS: ACETAMINOPHEN 325 MG TAB PO PRN (09:35)
[2018-05-23] MEDS: ESCITALOPRAM OXALATE 10 MG TAB PO SCH (09:36)
[2018-05-23] MEDS: AZITHROMYCIN IV 500 MG in NS 250 ML IV SCH (10:40)
--- NOTE | 2018-05-23 10:48 | ASMTCMCOM ---
CM Note CM Note Notes: Patient admitted w PNA/sepsis. IV abx started. PT/OT have been ordered. Patient lives w daughter Imani. Discharge needs TBD; Case Management will follow. Date Signed: 05/23/2018 10:47 AM Electronically Signed By:Priscilla Velazquez RN
[2018-05-23] MEDS: OSELTAMIVIR 6 MG/ML UDSYR PO SCH ×2 (11:08→20:44)
--- NOTE | 2018-05-23 16:04 | HOSPPROG ---
Hospitalist Progress Note Assessment/Plan: 1. Community Acquired PNA - RLL PNA seen on CXR on admission - S/p IV Ceftriaxone and Azithromycin and admission, will continue for now - Likely transition to PO abx if clinically improving tomorrow - Currently on 2L NC, wean 02 as tolerated - Anti-tussives PRN 2. Sepsis - Evidenced by fever, tachycardia upon admission - 2/2 to Influenza A and PNA as above - S/p IVF, continue abx as above 3. A Fib - Continue home Eliquis and Coreg, HR WNL this AM 4. Breast Cancer - s/p Mastectomy in 06/2017 FEN: Regular, IVF PRN DVT PPx: Home Eliquis Code: FULL Dispo: Pending clinical course Subjective: Patient reports feeling much improved this AM Objective: Vital Signs Temp Pulse Resp BP Pulse Ox 36.6 C 71 24 H 85/44 L 96 05/23/18 11:34 05/23/18 11:34 05/23/18 11:34 05/23/18 11:34 05/23/18 11:34 Microbiology 05/22/18 16:40 Respiratory Panel (PCR) - Final Nasal, Sinus - [place] Viral Transport Influenza Virus Type A H3 Laboratory Results 05/23/18 03:30 05/23/18 03:30 05/22/18 05/23/18 05/24/18 05:59 05:59 05:59 Intake Total 0 Output Total 300 Balance 2090 -300 PT 17.9 SEC (12.0-15.0) H 05/22/18 13:23 INR 1.55 (0.83-1.16) H 05/22/18 13:23 - Physical Exam Constitutional: no apparent distress Eyes: PERRL Ears, Nose, Mouth, Throat: moist mucous membranes Cardiovascular: irregularly irregular Respiratory: no respiratory distress Gastrointestinal: soft, non-tender abdomen Skin: warm Musculoskeletal: generalized weakness Neurologic: AAOx3 Psychiatric: interacting appropriately ICD10 Worksheet Patient Problems: Problems Problem Status Onset Pneumonia Acute Afib Acute Atrial fibrillation Acute Chronic Disease Mgmt/Transitional Care Acute Generalized weakness Acute Influenza B Acute
--- NOTE | 2018-05-23 16:57 | PDMN ---
Medical Necessity Medical necessity: [facility] M160 Sepsis, A-3 days: 88 yo w/ cough and SOB. + influenza w/ PNA meeting sepsis criteria w/ fever and tachycardia. Initially OBS for workup/tx but requires additional MN for ongoing need for parenteral antibx, still requiring O2 to keep sats>90%. Hx breast ca/mastectomy, afib, R hemicolectomy. Change to IP status 05/23/18@1521 per MD order.
[2018-05-23] MEDS: MONTELUKAST SODIUM 10 MG TAB PO SCH (20:42)
[2018-05-23] MEDS: QUEtiapine FUMARATE 50 MG TAB PO SCH (20:42)
[2018-05-23] MEDS: ZOLPIDEM TARTRATE 5 MG TAB PO SCH (20:44)
[2018-05-24] MEDS: LEVOTHYROXINE 75 MCG TAB PO SCH (05:08)
[2018-05-24] MEDS: CETIRIZINE 10 MG TAB PO SCH (08:53)
[2018-05-24] MEDS: PANTOPRAZOLE SODIUM 40 MG TAB PO SCH (08:53)
[2018-05-24] MEDS: ESCITALOPRAM OXALATE 10 MG TAB PO SCH (08:53)
[2018-05-24] MEDS: CARVEDILOL 6.25 MG TAB PO SCH (08:53)
[2018-05-24] MEDS: APIXABAN 2.5 MG TAB PO SCH (08:53)
[2018-05-24] MEDS: OSELTAMIVIR 6 MG/ML UDSYR PO SCH (08:54)
[2018-05-24] MEDS: AZITHROMYCIN IV 500 MG in NS 250 ML IV SCH (09:43)
--- NOTE | 2018-05-24 11:13 | PDIAF ---
- Diagnosis Diagnosis: Influenza, PNA Code Status: Full Code - Medication Management Storm Sash Maker Antibiotics: Levaquin 750 mg qd [facility] Antibiotic Stop Date: 05/28/18 Discharge Medications: electronically signed and located in the Home Medication List. - Orders Services needed: Home Alf Care Face to Face: I certify that this patient was under my care and that I had the required odvz-yc-coad encounter meeting the encounter requirements on the discharge day. My findings support the fact that the patient is homebound as defined in Home Care Face to Face Continued: CMS Chapter 7 Medicare Benefits Manual 30.1.1 , The condition of the patient is such that there exists a normal inability to leave home and consequently, leaving home would require a considerable and taxing effort. Isolation Type: Droplet Isolation - Follow Up Care Current Providers and Referrals: Nayana Lew MD [Primary Care Provider] - As per Instructions
--- NOTE | 2018-05-24 11:22 | ASMTLACE ---
LACE Length of stay for Answers: Less than 1 day current admission Acuity / Level of Answers: Yes Care: Did the patient have an inpatient admission? Comorbidities - select Answers: Any tumor (including all that apply lymphoma or leukemia) Opioid dependence / Chronic pain Other Notes: AFib # of Emergency department Answers: 1-2 visits in the last 6 months Social determinants Answers: Mental health diagnosis (anxiety, depression, pers onality disorders, etc.) Score: 14 Date Signed: 05/24/2018 11:21 AM Electronically Signed By:Enid Mishra RN
--- NOTE | 2018-05-24 11:33 | ASDISCHSUM ---
Discharge Information Plan Status:Home with No Needs Medically Cleared to Leave:05/24/2018 Discharge Date:05/24/2018 CM D/C Disposition:Home, Routine, Self-Care ADT D/C Disposition: Projected Discharge Date:05/24/2018 Transportation at D/C:Family Discharge Delay Reason: Follow-Up Date:05/24/2018 Discharge Slot: Final Diagnosis: Placement Information Patient Contact Information Contact Name:ZOEY Relationship:Daughter Address:[address] City:[place] Alternate Phone: State/Zip Code:[place] [address] Email: Financial Information Financial Class:Medicare Primary Plan Desc:MEDICARE INPATIENT Primary Plan Number:[id number] Secondary Plan Desc:[place] Secondary Plan Number:[id number] Assessment Information LACE LACE Length of stay for Answers: Less than 1 day current admission Acuity / Level of Answers: Yes Care: Did the patient have an inpatient admission? Comorbidities - select Answers: Any tumor (including all that apply lymphoma or leukemia) Opioid dependence / Chronic pain Other Notes: AFib # of Emergency department Answers: 1-2 visits in the last 6 months Social determinants Answers: Mental health diagnosis (anxiety, depression, pers onality disorders, etc.) Score: 14 Date Signed: 05/24/2018 11:21 AM Electronically Signed By:Enid Mishra RN [facility] CM Progress Note CM Note CM Note Notes: Patient admitted w PNA/sepsis. IV abx started. PT/OT have been ordered. Patient lives w daughter Imani. Discharge needs TBD; Case Management will follow. Date Signed: 05/23/2018 10:47 AM Electronically Signed By:Priscilla Velazquez RN Case Management Discharge Plan Note Case Management Discharge Discharge Order Complete? Answers: Yes Patient to Obtain Answers: via Family Medications Transportation Arranged Answers: Family/Friends Faxed Final Orders Answers: Yes Notes: [facility] Agency/Facility Transfer Answers: Yes Notes: [facility] Report Printed & Faxed to Receiving Agency Family Notified Answers: Yes Notes: daughter Imani on e phone Discharge Comments Notes: 05/24/2018 Case Management Note Provided information on project homecoming with [facility] [facility]. Arranged [facility] home care. Faxed final orders. Discussed above with daughter on the phone. Granddaughter María to transport pt home. Case Management d/c poc: home with [facility] and [facility]. Date Signed: 05/24/2018 11:31 AM Electronically Signed By:Enid Mishra RN Intervention Information Intervention Type:*Incorrect Registration Date of Service:05/23/2018 11:05 AM Patient Type:Inpatient Staff Member:Kamilah Nunez Hours: Discipline: Severity: Comment: Intervention Type:*GER-Signed Date of Service:05/23/2018 12:24 PM Patient Type:Observation Staff Member:Leia Hall Hours: Discipline: Severity: Comment:
--- NOTE | 2018-05-24 11:46 | PDHOMEO2F ---
Home Oxygen Face to Face Home Orders: I certify that a physician or a nurse practitioner or physician's compounding assistant has had a [id number] encounter with this patient on the date of this order due to the diagnosis listed, which relates to the primary reason the patient requires home oxygen. Alternative treatments have been tried, or considered, and deemed ineffective. It is anticipated that supplemental oxygen will result in improvement with treatment. Home oxygen qualifying diagnosis: Influenza A Home oxygen secondary diagnosis: Community Acquired PNA SpO2 on room air (%): 84 Frequency of home oxygen needed: continuous Home oxygen liters per minute: 2 Home oxygen delivery device: nasal cannula Concentrator: Yes E-tanks for mobility and back up: Yes If ordering portable O2, is the patient mobile in the home?: Yes I certify that, based on these findings, the home oxygen is medically necessary for this patient for the following length of time. Length of time home oxygen needed: 99 years
[2018-05-24 12:09] VITALS: BP 91/57
--- NOTE | 2018-05-24 15:51 | PDDCSUM ---
Discharge Summary Discharge Summary: Date of Admission: 05/23/2018 Date of Discharge: 05/24/2018 Consults: N/A Procedures: CTA Chest, CXR Followup: PCP Hospital Course Problem List: 1. Community Acquired PNA - RLL PNA seen on CXR on admission - S/p IV Ceftriaxone and Azithromycin and admission, transitioned to PO Levaquin upon discharge - Currently on 2L NC, ordered home oxygen - Anti-tussives PRN 2. Sepsis - Improved - Evidenced by fever, tachycardia upon admission - / to Influenza A and PNA as above 3. A Fib - Continue home Eliquis and Coreg, HR WNL 4. Breast Cancer - s/p Mastectomy in 06/2017 Time spent on discharge was >35 minutes with >50% of time spent on patient education and counseling
[2018-05-24] MEDS: ACETAMINOPHEN 325 MG TAB PO PRN (16:30)
== END 2018-05-24 17:39 | disposition home health service (06) | DRG 871 ==
LOC: CED 12:47 → CEDHOLD 14:33 → INTOOBSV 14:33 → F2W 15:50 → OBSVTOIN 05-23 15:21
PROVIDERS: ADMIT Internal Medicine; ATTEND Internal Medicine
DX: A41.9 Sepsis, unspecified organism (principal); J10.08 Influenza due to other identified influenza virus with other specified pneumonia; I48.91 Unspecified atrial fibrillation; G25.81 Restless legs syndrome; Z85.3 Personal history of malignant neoplasm of breast; Z90.10 Acquired absence of unspecified breast and nipple; Z79.01 Long term (current) use of anticoagulants; Z87.891 Personal history of nicotine dependence
CPT/HCPCS: 71046-PO; 80048-ER; 83605-ER; 96365; 97161-GP; 97166-GO; 97535-GO; G0378; J0456; J0696

== ENCOUNTER → 2018-08-05 | Outpatient (CLI) | payer OTHER, MEDICAID | LOC: CIMAGING 12:47 | PROVIDERS: ATTEND Internal Medicine Hematology & Oncology | DX: Z12.31 Encounter for screening mammogram for malignant neoplasm of breast (principal); Z85.3 Personal history of malignant neoplasm of breast; Z80.3 Family history of malignant neoplasm of breast ==